=== PATIENT | male | born 1960 | race Hispanic/Latino ===

== ENCOUNTER 2020-10-27 16:46 | Inpatient (IN) | payer MEDICAID, OTHER, SELFPAY ==
[~2020-10-27] VITALS: Ht 185.4 cm; Wt 83.6 kg
[2020-10-27 17:13] LABS: BASOPHILS % (AUTO) 0.2 % (0.0-5.0); LYMPHOCYTES % (AUTO) 19.4 % (21.0-51.0); MEAN CORPUSCULAR HEMOGLOBIN 30.6 pg (27.0-33.0); MEAN CORPUSCULAR HGB CONC 33.9 g/dL (32.0-36.0); MEAN CORPUSCULAR VOLUME 90.4 fL (79-99); MONOCYTES % (AUTO) 8.3 % (3.0-13.0); NEUTROPHILS % (AUTO) 71.8 % (40.0-77.0); PLATELET COUNT (AUTO) 146 K/uL (130-400); RED BLOOD CELL COUNT(AUTO) 5.09 MIL/uL (4.50-6.20); RED CELL DISTRIBUTION WIDTH 11.9 % (11.0-15.5); WHITE BLOOD COUNT (AUTO) 6.2 K/uL (4.8-10.8)
[2020-10-27] MEDS ORDERED: ALBUTEROL INHALER 90MCG/INH IH ONE (17:17)
[2020-10-27] MEDS ORDERED: CEFTRIAXONE SODIUM 1 GM ONE (17:17)
[2020-10-27] MEDS ORDERED: ACETAMINOPHEN-CODEINE 300/30MG TAB ONE (17:18)
[2020-10-27] MEDS ORDERED: AZITHROMYCIN 250 MG TABLET PO ONE (17:18)
[2020-10-27] MEDS ORDERED: SODIUM CHLORIDE 0.9% 50 ML IV ONE (17:19)
[2020-10-27 17:21] LABS: ABG BASE EXCESS -5.7 mmol/L (-2.0-3.0); ABG HCO3 17.6 mmol/L (21.0-28.0); ABG OXYGEN SATURATION 81.4 % (95.0-99.0); ABG PCO2 29 mmHg (35-48)
[2020-10-27 17:28] LABS: INR 1.04 (0.85-1.15); PROTHROMBIN TIME 11.1 SEC (9.6-11.6)
[2020-10-27 17:29] LABS: PARTIAL THROMBOPLASTIN TIME 29.4 SEC (26.3-35.5)
[2020-10-27 17:36] LABS: CREATININE 1.1 mg/dL (0.5-1.5); POTASSIUM 4.2 mmol/L (3.5-5.1)
[2020-10-27 17:42] LABS: ALBUMIN 3.3 g/dL (3.5-5.0); BILIRUBIN,TOTAL 0.5 mg/dL (0.2-1.0); TOTAL PROTEIN, SERUM 7.8 g/dL (6.0-8.3)
[2020-10-27 18:02] LABS: B-TYPE NATRIURETIC PEPTIDE < 5 pg/mL (0-100)
[2020-10-27] MEDS ORDERED: ONDANSETRON HCL 4 MG/2 ML VIAL IVP PRN (19:00)
[2020-10-27] MEDS ORDERED: SODIUM CHLORIDE 0.9% 1000ML 1,000 ML IV SCH (19:00)
[2020-10-27] MEDS ORDERED: ACETAMINOPHEN 325 MG TAB PO PRN (19:00)
[2020-10-27] MEDS ORDERED: IBUPROFEN 200 MG TAB ONE (19:15)
[2020-10-27] MEDS ORDERED: IBUPROFEN 400 MG TABLET ONE (19:15)
[2020-10-27] MEDS: FAMOTIDINE 20MG TAB 20 MG TAB PO SCH (21:00)
[2020-10-27] MEDS ORDERED: FAMOTIDINE 20MG TAB 20 MG TAB ONE (21:40)
[2020-10-27] MEDS ORDERED: DEXAMETHASONE 4 MG TAB ONE (21:40)
[2020-10-27] MEDS ORDERED: ENOXAPARIN SODIUM 30 MG/0.3 ML SQ ONE (21:41)
[2020-10-27] MEDS: ALBUTEROL INHALER 90MCG/INH IH SCH (22:00)
[2020-10-28 06:54] LABS: APPEARANCE,URINE Clear (CLEAR); BILIRUBIN,URINE Negative (NEGATIVE); COLOR,URINE Yellow (YELLOW); GLUCOSE, URINE (UA) Negative (NEGATIVE); KETONES,URINE Trace mg/dL (NEGATIVE); LEUKOCYTE ESTERASE ,URINE Negative (NEGATIVE); NITRATE,URINE Negative (NEGATIVE); OCCULT BLOOD,URINE Negative (NEGATIVE); PH,URINE 6.5 (5.0-8.0); PROTEIN,URINE POS 1+ mg/dL (NEGATIVE); UROBILINOGEN,URINE 0.2 mg/dL (0.2-1.0)
[2020-10-28 07:40] LABS: BACTERIA,URINE Rare /HPF (None Seen); RBC,URINE 0-1 /HPF (0-1); SQUAMOUS EPITHELIAL CELL,UR 0-2 /HPF (0-2); WBC,URINE None Seen /HPF (0-1)
[2020-10-28] MEDS ORDERED: DEXAMETHASONE 4 MG TAB ONE (07:50)
[2020-10-28] MEDS ORDERED: FAMOTIDINE 20MG TAB 20 MG TAB ONE ×2 (07:50→20:21)
[2020-10-28] MEDS ORDERED: AZITHROMYCIN 250 MG TABLET PO ONE (07:51)
[2020-10-28] MEDS ORDERED: ENOXAPARIN SODIUM 30 MG/0.3 ML SQ ONE ×2 (07:51→20:22)
[2020-10-28] MEDS: ENOXAPARIN SODIUM 30 MG/0.3 ML SQ SCH ×2 (09:00→21:00)
[2020-10-28] MEDS ORDERED: DEXAMETHASONE 4 MG TAB PO SCH (09:00)
[2020-10-28] MEDS: AZITHROMYCIN 250 MG TABLET PO SCH (09:00)
[2020-10-28] MEDS ORDERED: CEFTRIAXONE SODIUM 1 GM ONE (16:07)
[2020-10-28] MEDS: CEFTRIAXONE SODIUM 1 GM IVP SCH (17:00)
[2020-10-28] MEDS: ALBUTEROL INHALER 90MCG/INH IH SCH ×2 (18:00→23:43)
[2020-10-28] MEDS: FAMOTIDINE 20MG TAB 20 MG TAB PO SCH (21:00)
[2020-10-28] MEDS: METHYLPREDNISOLONE SOD SUCC 125MG/2ML VIAL IVP SCH (21:00)
[2020-10-28] MEDS ORDERED: NAPR-1023 PO (21:16)
[2020-10-28] MEDS ORDERED: AZIT250T9 PO (21:16)
[2020-10-28 22:33] VITALS: BP 155/87
[2020-10-29 00:05] VITALS: BP 145/78
[2020-10-29] MEDS: ALBUTEROL INHALER 90MCG/INH IH SCH ×6 (02:44→21:55)
[2020-10-29 04:06] LABS: ABG BASE EXCESS -1.4 mmol/L (-2.0-3.0); ABG HCO3 22.2 mmol/L (21.0-28.0); ABG OXYGEN SATURATION 91.7 % (95.0-99.0); ABG PCO2 34 mmHg (35-48)
[2020-10-29 04:07] VITALS: BP 153/83
[2020-10-29 05:30] LABS: HEMATOCRIT 47.3 % (42-54); MEAN CORPUSCULAR HEMOGLOBIN 29.9 pg (27.0-33.0); MEAN CORPUSCULAR HGB CONC 33.4 g/dL (32.0-36.0); MEAN CORPUSCULAR VOLUME 89.6 fL (79-99); RED BLOOD CELL COUNT(AUTO) 5.28 MIL/uL (4.50-6.20)
[2020-10-29 05:56] LABS: CRP QUANTITATIVE 37.4 mg/L (0.00-9.0); POTASSIUM 3.9 mmol/L (3.5-5.1)
[2020-10-29 08:00] VITALS: BP 130/79
[2020-10-29] MEDS: AZITHROMYCIN 250 MG TABLET PO SCH (10:48)
[2020-10-29] MEDS: FAMOTIDINE 20MG TAB 20 MG TAB PO SCH ×2 (10:48→21:54)
[2020-10-29] MEDS: ENOXAPARIN SODIUM 30 MG/0.3 ML SQ SCH ×2 (10:48→21:55)
[2020-10-29] MEDS: METHYLPREDNISOLONE SOD SUCC 125MG/2ML VIAL IVP SCH ×2 (10:48→21:54)
[2020-10-29 12:00] VITALS: BP 131/84
[2020-10-29 16:00] VITALS: BP 133/86
[2020-10-29] MEDS ORDERED: GLUCAGON 1MG KIT 1 MG ML IM PRN (16:30)
[2020-10-29] MEDS ORDERED: DEXTROSE 50%-WATER 50 ML DISP.SYRIN IV PRN (16:30)
[2020-10-29] MEDS: INSULIN HUMULIN R 100 UNIT/ML 3ML SQ SCH ×2 (16:30→20:52)
[2020-10-29] MEDS: CEFTRIAXONE SODIUM 1 GM IVP SCH (16:31)
[2020-10-29 20:00] VITALS: BP 125/86
[2020-10-30] VITALS: BP_SYST 122; BP_SYST 124; BP_DIAS 68; BP_DIAS 87
[2020-10-30] MEDS: ALBUTEROL INHALER 90MCG/INH IH SCH ×6 (01:00→20:11)
[2020-10-30 03:49] VITALS: BP 123/64
[2020-10-30] MEDS: INSULIN HUMULIN R 100 UNIT/ML 3ML SQ SCH ×4 (06:51→20:18)
[2020-10-30 08:00] VITALS: BP 127/55
[2020-10-30 08:42] LABS: HEMATOCRIT 45.6 % (42-54); MEAN CORPUSCULAR HEMOGLOBIN 30.9 pg (27.0-33.0); MEAN CORPUSCULAR HGB CONC 33.8 g/dL (32.0-36.0); MEAN CORPUSCULAR VOLUME 91.6 fL (79-99); PLATELET COUNT (AUTO) 245 K/uL (130-400); RED BLOOD CELL COUNT(AUTO) 4.98 MIL/uL (4.50-6.20); RED CELL DISTRIBUTION WIDTH 12.3 % (11.0-15.5)
[2020-10-30 08:52] LABS: CREATININE 1.1 mg/dL (0.5-1.5); POTASSIUM 4.1 mmol/L (3.5-5.1)
[2020-10-30] MEDS: METHYLPREDNISOLONE SOD SUCC 125MG/2ML VIAL IVP SCH ×2 (09:00→20:11)
[2020-10-30] MEDS: ENOXAPARIN SODIUM 30 MG/0.3 ML SQ SCH ×2 (09:00→20:11)
[2020-10-30] MEDS: AZITHROMYCIN 250 MG TABLET PO SCH (09:00)
[2020-10-30] MEDS: FAMOTIDINE 20MG TAB 20 MG TAB PO SCH ×2 (09:00→20:10)
[2020-10-30 09:23] LABS: LYMPHOCYTES % (MANUAL) 7 % (22-44); MAN.DIFF COMMENT-IMPRESSION MANUAL DIFFERENTIAL; MONOCYTES % (MANUAL) 2 % (2-9); PLATELET MORPHOLOGY COMMENT ADEQUATE; SEGMENTED NEUTROPHILS % 91 % (40-70)
[2020-10-30 12:00] VITALS: BP 118/63
[2020-10-30 16:00] VITALS: BP 132/93
[2020-10-30] MEDS: CEFTRIAXONE SODIUM 1 GM IVP SCH (18:01)
[2020-10-30 20:45] VITALS: BP 121/61
[2020-10-31 00:38] VITALS: BP 137/69
[2020-10-31] MEDS: ALBUTEROL INHALER 90MCG/INH IH SCH ×6 (02:28→20:45)
[2020-10-31] MEDS: INSULIN HUMULIN R 100 UNIT/ML 3ML SQ SCH ×4 (06:11→20:45)
[2020-10-31 06:25] VITALS: BP 123/70
[2020-10-31] MEDS: METHYLPREDNISOLONE SOD SUCC 125MG/2ML VIAL IVP SCH ×4 (06:53→17:30)
[2020-10-31 08:28] VITALS: BP 130/59
[2020-10-31] MEDS: ENOXAPARIN SODIUM 30 MG/0.3 ML SQ SCH ×2 (09:43→20:41)
[2020-10-31] MEDS: FAMOTIDINE 20MG TAB 20 MG TAB PO SCH ×2 (09:43→20:39)
[2020-10-31 12:18] VITALS: BP 134/77
[2020-10-31] MEDS: CEFTRIAXONE SODIUM 1 GM IVP SCH (16:04)
[2020-10-31 16:30] VITALS: BP 126/73
[2020-10-31 19:00] VITALS: BP 125/73
[2020-11-01] VITALS: BP 140/64
[2020-11-01] MEDS: METHYLPREDNISOLONE SOD SUCC 125MG/2ML VIAL IVP SCH ×4 (01:34→17:12)
[2020-11-01] MEDS: ALBUTEROL INHALER 90MCG/INH IH SCH ×6 (01:35→21:31)
[2020-11-01 04:00] VITALS: BP 135/78
[2020-11-01] MEDS: INSULIN HUMULIN R 100 UNIT/ML 3ML SQ SCH ×4 (07:13→21:00)
[2020-11-01 08:00] VITALS: BP 118/64
[2020-11-01] MEDS: FAMOTIDINE 20MG TAB 20 MG TAB PO SCH ×2 (08:03→21:30)
[2020-11-01] MEDS: ENOXAPARIN SODIUM 30 MG/0.3 ML SQ SCH ×2 (08:04→21:30)
[2020-11-01 11:49] VITALS: BP 129/64
[2020-11-01 15:54] VITALS: BP 129/65
[2020-11-01] MEDS: CEFTRIAXONE SODIUM 1 GM IVP SCH (17:12)
[2020-11-01 20:00] VITALS: BP 137/76
[2020-11-02] VITALS (7 sets, daily range): BP systolic 117–142; BP diastolic 58–71
[2020-11-02] MEDS: METHYLPREDNISOLONE SOD SUCC 125MG/2ML VIAL IVP SCH ×5 (02:26→23:38)
[2020-11-02] MEDS: ALBUTEROL INHALER 90MCG/INH IH SCH ×6 (02:27→23:38)
[2020-11-02] MEDS: INSULIN HUMULIN R 100 UNIT/ML 3ML SQ SCH ×4 (05:39→21:51)
[2020-11-02] MEDS: FAMOTIDINE 20MG TAB 20 MG TAB PO SCH ×2 (08:03→21:14)
[2020-11-02] MEDS: ENOXAPARIN SODIUM 30 MG/0.3 ML SQ SCH ×2 (08:03→21:15)
[2020-11-02] MEDS: CEFTRIAXONE SODIUM 1 GM IVP SCH (16:44)
[2020-11-03] MEDS: ALBUTEROL INHALER 90MCG/INH IH SCH ×6 (02:00→21:45)
[2020-11-03 05:35] LABS: HEMATOCRIT 46.1 % (42-54); MEAN CORPUSCULAR HEMOGLOBIN 30.6 pg (27.0-33.0); MEAN CORPUSCULAR HGB CONC 33.6 g/dL (32.0-36.0); MEAN CORPUSCULAR VOLUME 91.1 fL (79-99); PLATELET COUNT (AUTO) 287 K/uL (130-400); RED BLOOD CELL COUNT(AUTO) 5.06 MIL/uL (4.50-6.20); RED CELL DISTRIBUTION WIDTH 11.8 % (11.0-15.5); WHITE BLOOD COUNT (AUTO) 12.4 K/uL (4.8-10.8)
[2020-11-03 05:40] VITALS: BP 139/75
[2020-11-03] MEDS: METHYLPREDNISOLONE SOD SUCC 125MG/2ML VIAL IVP SCH ×4 (05:49→21:35)
[2020-11-03 05:51] LABS: BILIRUBIN,TOTAL 0.4 mg/dL (0.2-1.0); POTASSIUM 4.3 mmol/L (3.5-5.1); TOTAL PROTEIN, SERUM 6.8 g/dL (6.0-8.3)
[2020-11-03] MEDS: INSULIN HUMULIN R 100 UNIT/ML 3ML SQ SCH ×4 (05:52→21:48)
[2020-11-03 06:16] LABS: BAND NEUTROPHILS % (MANUAL) 1 % (0-2); LYMPHOCYTES % (MANUAL) 6 % (22-44); MAN.DIFF COMMENT-IMPRESSION MANUAL DIFFERENTIAL; MONOCYTES % (MANUAL) 4 % (2-9); REACTIVE LYMPHOCYTES 2 % (0-0); SEGMENTED NEUTROPHILS % 87 % (40-70)
[2020-11-03 06:17] LABS: PLATELET MORPHOLOGY COMMENT ADEQUATE
[2020-11-03] MEDS: FAMOTIDINE 20MG TAB 20 MG TAB PO SCH ×2 (08:41→21:35)
[2020-11-03] MEDS: ENOXAPARIN SODIUM 30 MG/0.3 ML SQ SCH ×2 (08:41→21:36)
[2020-11-03 12:00] VITALS: BP 163/72
[2020-11-03] MEDS: CEFTRIAXONE SODIUM 1 GM IVP SCH (16:21)
[2020-11-03 17:16] VITALS: BP 147/68
[2020-11-03 20:02] VITALS: BP 152/71
[2020-11-04] MEDS: ALBUTEROL INHALER 90MCG/INH IH SCH ×6 (02:00→21:35)
[2020-11-04 05:44] VITALS: BP 134/60
[2020-11-04] MEDS: METHYLPREDNISOLONE SOD SUCC 125MG/2ML VIAL IVP SCH ×4 (05:53→21:31)
[2020-11-04] MEDS: INSULIN HUMULIN R 100 UNIT/ML 3ML SQ SCH ×4 (06:23→22:03)
[2020-11-04 08:30] VITALS: BP 138/69
[2020-11-04] MEDS: ENOXAPARIN SODIUM 30 MG/0.3 ML SQ SCH ×2 (10:27→21:33)
[2020-11-04] MEDS: FAMOTIDINE 20MG TAB 20 MG TAB PO SCH ×2 (10:27→21:28)
[2020-11-04 12:44] VITALS: BP 142/59
[2020-11-04 16:30] VITALS: BP 136/68
[2020-11-04] MEDS: CEFTRIAXONE SODIUM 1 GM IVP SCH (17:16)
[2020-11-04 19:44] VITALS: BP 146/67
[2020-11-05 00:10] VITALS: BP 141/71
[2020-11-05] MEDS: ALBUTEROL INHALER 90MCG/INH IH SCH ×6 (02:00→22:00)
[2020-11-05 05:48] VITALS: BP 156/71
[2020-11-05] MEDS: INSULIN HUMULIN R 100 UNIT/ML 3ML SQ SCH ×4 (05:53→21:46)
[2020-11-05] MEDS: METHYLPREDNISOLONE SOD SUCC 125MG/2ML VIAL IVP SCH ×3 (05:54→18:44)
[2020-11-05 08:53] VITALS: BP 138/83
[2020-11-05] MEDS: FAMOTIDINE 20MG TAB 20 MG TAB PO SCH ×2 (10:11→21:30)
[2020-11-05] MEDS: ENOXAPARIN SODIUM 30 MG/0.3 ML SQ SCH ×2 (10:12→21:30)
[2020-11-05 12:06] VITALS: BP 111/67
[2020-11-05 17:45] VITALS: BP 153/85
[2020-11-05 20:27] VITALS: BP 150/80
[2020-11-06] VITALS: BP 157/77
[2020-11-06] MEDS: ALBUTEROL INHALER 90MCG/INH IH SCH ×3 (02:00→21:10)
[2020-11-06] MEDS: METHYLPREDNISOLONE SOD SUCC 125MG/2ML VIAL IVP SCH ×5 (04:47→23:06)
[2020-11-06 05:01] VITALS: BP 147/80
[2020-11-06 06:26] LABS: BASOPHILS % (AUTO) 0.2 % (0.0-5.0); HEMATOCRIT 47.6 % (42-54); LYMPHOCYTES % (AUTO) 4.9 % (21.0-51.0); MEAN CORPUSCULAR HEMOGLOBIN 30.3 pg (27.0-33.0); MEAN CORPUSCULAR HGB CONC 33.8 g/dL (32.0-36.0); MEAN CORPUSCULAR VOLUME 89.6 fL (79-99); NEUTROPHILS % (AUTO) 87.5 % (40.0-77.0); PLATELET COUNT (AUTO) 233 K/uL (130-400); RED BLOOD CELL COUNT(AUTO) 5.31 MIL/uL (4.50-6.20); RED CELL DISTRIBUTION WIDTH 11.8 % (11.0-15.5); WHITE BLOOD COUNT (AUTO) 20.1 K/uL (4.8-10.8)
[2020-11-06 06:51] LABS: ALBUMIN 2.9 g/dL (3.5-5.0); BILIRUBIN,TOTAL 0.6 mg/dL (0.2-1.0); CREATININE 0.9 mg/dL (0.5-1.5); MAGNESIUM 2.5 mg/dL (1.80-2.40); POTASSIUM 4.1 mmol/L (3.5-5.1); TOTAL PROTEIN, SERUM 6.7 g/dL (6.0-8.3)
[2020-11-06] MEDS: INSULIN HUMULIN R 100 UNIT/ML 3ML SQ SCH ×4 (07:30→20:51)
[2020-11-06 07:49] VITALS: BP 137/84
[2020-11-06] MEDS: FAMOTIDINE 20MG TAB 20 MG TAB PO SCH ×2 (10:10→20:08)
[2020-11-06] MEDS: ENOXAPARIN SODIUM 30 MG/0.3 ML SQ SCH ×2 (10:10→20:08)
[2020-11-06 11:52] VITALS: BP 133/75
[2020-11-06] MEDS ORDERED: SODIUM CHLORIDE 45 ML SPRY NS PRN (12:45)
[2020-11-06 15:46] VITALS: BP 131/77
[2020-11-06 20:00] VITALS: BP 151/87
[2020-11-07] VITALS (7 sets, daily range): BP systolic 130–163; BP diastolic 68–103
[2020-11-07] MEDS: ALBUTEROL INHALER 90MCG/INH IH SCH ×6 (02:32→22:00)
[2020-11-07] MEDS: METHYLPREDNISOLONE SOD SUCC 125MG/2ML VIAL IVP SCH ×3 (05:01→20:31)
[2020-11-07 05:34] LABS: BASOPHILS % (AUTO) 0.2 % (0.0-5.0); HEMATOCRIT 46.9 % (42-54); LYMPHOCYTES % (AUTO) 4.3 % (21.0-51.0); MEAN CORPUSCULAR HEMOGLOBIN 30.8 pg (27.0-33.0); MEAN CORPUSCULAR HGB CONC 34.3 g/dL (32.0-36.0); MEAN CORPUSCULAR VOLUME 89.7 fL (79-99); MONOCYTES % (AUTO) 4.1 % (3.0-13.0); NEUTROPHILS % (AUTO) 88.4 % (40.0-77.0); PLATELET COUNT (AUTO) 204 K/uL (130-400); RED BLOOD CELL COUNT(AUTO) 5.23 MIL/uL (4.50-6.20); RED CELL DISTRIBUTION WIDTH 11.9 % (11.0-15.5); WHITE BLOOD COUNT (AUTO) 21.3 K/uL (4.8-10.8)
[2020-11-07 05:51] LABS: ALBUMIN 2.7 g/dL (3.5-5.0); BILIRUBIN,TOTAL 0.5 mg/dL (0.2-1.0); CREATININE 0.8 mg/dL (0.5-1.5); POTASSIUM 4.1 mmol/L (3.5-5.1); TOTAL PROTEIN, SERUM 6.6 g/dL (6.0-8.3)
[2020-11-07] MEDS: INSULIN HUMULIN R 100 UNIT/ML 3ML SQ SCH ×4 (07:30→20:24)
[2020-11-07] MEDS: FAMOTIDINE 20MG TAB 20 MG TAB PO SCH ×2 (12:04→20:32)
[2020-11-07] MEDS: ENOXAPARIN SODIUM 30 MG/0.3 ML SQ SCH ×2 (12:04→20:32)
[2020-11-07] MEDS ORDERED: LORAZEPAM 2 MG/ML 1 ML VIAL IVP ONE (22:00)
[2020-11-08] VITALS (23 sets, daily range): BP systolic 77–220; BP diastolic 49–109
[2020-11-08] MEDS: METHYLPREDNISOLONE SOD SUCC 125MG/2ML VIAL IVP SCH ×4 (00:18→18:59)
[2020-11-08] MEDS: ALBUTEROL INHALER 90MCG/INH IH SCH ×5 (02:00→18:00)
[2020-11-08 04:25] LABS: ABG BASE EXCESS 1.9 mmol/L (-2.0-3.0); ABG HCO3 26.2 mmol/L (21.0-28.0); ABG OXYGEN SATURATION 84.8 % (95.0-99.0); ABG PCO2 40 mmHg (35-48)
[2020-11-08 05:51] LABS: BASOPHILS % (AUTO) 0.2 % (0.0-5.0); HEMATOCRIT 49.5 % (42-54); LYMPHOCYTES % (AUTO) 2.5 % (21.0-51.0); MEAN CORPUSCULAR HEMOGLOBIN 30.5 pg (27.0-33.0); MEAN CORPUSCULAR HGB CONC 33.1 g/dL (32.0-36.0); MONOCYTES % (AUTO) 2.9 % (3.0-13.0); NEUTROPHILS % (AUTO) 92.6 % (40.0-77.0); PLATELET COUNT (AUTO) 199 K/uL (130-400); RED BLOOD CELL COUNT(AUTO) 5.38 MIL/uL (4.50-6.20); RED CELL DISTRIBUTION WIDTH 12.2 % (11.0-15.5); WHITE BLOOD COUNT (AUTO) 21.5 K/uL (4.8-10.8)
[2020-11-08 06:02] LABS: ABG BASE EXCESS -1.7 mmol/L (-2.0-3.0); ABG HCO3 21.7 mmol/L (21.0-28.0); ABG PCO2 34 mmHg (35-48)
[2020-11-08 06:11] LABS: ALBUMIN 2.7 g/dL (3.5-5.0); BILIRUBIN,DIRECT 0.1 mg/dL (0.0-0.3); BILIRUBIN,TOTAL 0.7 mg/dL (0.2-1.0); CREATININE 0.9 mg/dL (0.5-1.5); MAGNESIUM 2.6 mg/dL (1.80-2.40); PHOSPHORUS 3.4 mg/dL (2.5-4.9); POTASSIUM 4.3 mmol/L (3.5-5.1); TOTAL PROTEIN, SERUM 6.5 g/dL (6.0-8.3)
[2020-11-08] MEDS: INSULIN HUMULIN R 100 UNIT/ML 3ML SQ SCH ×4 (06:35→20:42)
[2020-11-08] MEDS: ENOXAPARIN SODIUM 30 MG/0.3 ML SQ SCH ×2 (08:50→21:32)
[2020-11-08] MEDS: FAMOTIDINE 20MG TAB 20 MG TAB PO SCH (08:50)
[2020-11-08 11:10] LABS: ABG BASE EXCESS -0.9 mmol/L (-2.0-3.0); ABG HCO3 23.3 mmol/L (21.0-28.0); ABG OXYGEN SATURATION 79.2 % (95.0-99.0); ABG PCO2 37 mmHg (35-48)
[2020-11-08] MEDS ORDERED: FENTANYL CITRATE PF 0.05 MG/ML 1,000 MCG in SODIUM CHLORIDE 0.9% 100 ML IVPB SCH (11:15)
[2020-11-08] MEDS: MIDAZOLAM 100MG-0.9% NS 100ML 100ML BAG IV SCH ×3 (11:15→22:48)
[2020-11-08] MEDS ORDERED: PROPOFOL 1000 MG/100 ML 100 ML IV ONE (11:43)
[2020-11-08] MEDS ORDERED: FENTANYL 2500MCG+NS 250ML 250 ML IV ONE (11:43)
[2020-11-08] MEDS ORDERED: SODIUM CHLORIDE 0.9% 1000ML 1,000 ML IV ONE (11:44)
[2020-11-08] MEDS ORDERED: MIDAZOLAM HCL 1 MG/ML 2ML VIAL ONE (11:58)
[2020-11-08] MEDS ORDERED: PHARMACY COMMUNICATION MISC SCH ×2 (14:00→19:00)
[2020-11-08] MEDS ORDERED: NOREPINEPHRINE 4MG/NS 250ML 250 ML IV STA (14:10)
[2020-11-08] MEDS ORDERED: VECURONIUM 50MG/NS 50ML IV SCH ×2 (14:30)
[2020-11-08] MEDS ORDERED: NOREPINEPHRINE 4MG/NS 250ML 250 ML IV ONE (14:59)
[2020-11-08] MEDS: PROPOFOL 1000 MG/100 ML 100 ML IV SCH (19:42)
[2020-11-08] MEDS: FAMOTIDINE/PF 20 MG/2 ML VIAL IV SCH (21:32)
[2020-11-09] VITALS (19 sets, daily range): BP systolic 98–130; BP diastolic 70–82
[2020-11-09] MEDS: METHYLPREDNISOLONE SOD SUCC 125MG/2ML VIAL IVP SCH ×4 (00:19→19:13)
[2020-11-09] MEDS: ROCURONIUM 100 MG/NS 100ML (DRIP) IV SCH ×2 (00:20)
[2020-11-09] MEDS ORDERED: FENTANYL 2500MCG+NS 250ML 250 ML IV ONE ×2 (00:45→12:31)
[2020-11-09] MEDS: PROPOFOL 1000 MG/100 ML 100 ML IV SCH ×4 (00:48→20:31)
[2020-11-09 04:11] LABS: BASOPHILS % (AUTO) 0.2 % (0.0-5.0); HEMATOCRIT 49.2 % (42-54); LYMPHOCYTES % (AUTO) 2.3 % (21.0-51.0); MEAN CORPUSCULAR HEMOGLOBIN 30.2 pg (27.0-33.0); MEAN CORPUSCULAR HGB CONC 32.1 g/dL (32.0-36.0); MEAN CORPUSCULAR VOLUME 93.9 fL (79-99); MONOCYTES % (AUTO) 3.6 % (3.0-13.0); NEUTROPHILS % (AUTO) 92.5 % (40.0-77.0); PLATELET COUNT (AUTO) 216 K/uL (130-400); RED BLOOD CELL COUNT(AUTO) 5.24 MIL/uL (4.50-6.20); RED CELL DISTRIBUTION WIDTH 12.2 % (11.0-15.5); WHITE BLOOD COUNT (AUTO) 28.1 K/uL (4.8-10.8)
[2020-11-09 04:25] LABS: ALBUMIN 2.5 g/dL (3.5-5.0); BILIRUBIN,TOTAL 0.4 mg/dL (0.2-1.0); POTASSIUM 4.9 mmol/L (3.5-5.1); TOTAL PROTEIN, SERUM 6.4 g/dL (6.0-8.3)
[2020-11-09 05:51] LABS: INR 1.03 (0.85-1.15); PROTHROMBIN TIME 11.2 SEC (9.6-11.6)
[2020-11-09] MEDS: INSULIN HUMULIN R 100 UNIT/ML 3ML SQ SCH ×4 (06:02→20:32)
[2020-11-09] MEDS: ENOXAPARIN SODIUM 30 MG/0.3 ML SQ SCH ×2 (09:54→20:19)
[2020-11-09] MEDS: FAMOTIDINE/PF 20 MG/2 ML VIAL IV SCH ×2 (09:54→20:19)
[2020-11-09] MEDS: MIDAZOLAM 100MG-0.9% NS 100ML 100ML BAG IV SCH ×2 (12:00→19:17)
[2020-11-09] MEDS ORDERED: NOREPINEPHRINE 4MG/NS 250ML 250 ML IV ONE (12:32)
[2020-11-09 14:18] LABS: ABG HCO3 26.8 mmol/L (21.0-28.0); ABG OXYGEN SATURATION 88.7 % (95.0-99.0); ABG PCO2 57 mmHg (35-48)
[2020-11-09] MEDS: DOCUSATE SODIUM 100 MG CAP PO SCH (20:19)
[2020-11-10] VITALS (22 sets, daily range): BP systolic 125–188; BP diastolic 76–112
[2020-11-10] MEDS ORDERED: FENTANYL 2500MCG+NS 250ML 250 ML IV ONE ×2 (02:58→15:37)
[2020-11-10] MEDS: ROCURONIUM 100 MG/NS 100ML (DRIP) IV SCH ×6 (03:05→20:28)
[2020-11-10] MEDS: PROPOFOL 1000 MG/100 ML 100 ML IV SCH (04:10)
[2020-11-10] MEDS: METHYLPREDNISOLONE SOD SUCC 125MG/2ML VIAL IVP SCH ×4 (05:44→17:03)
[2020-11-10] MEDS: INSULIN HUMULIN R 100 UNIT/ML 3ML SQ SCH ×4 (05:58→20:23)
[2020-11-10 06:10] LABS: BASOPHILS % (AUTO) 0.1 % (0.0-5.0); HEMATOCRIT 48.6 % (42-54); MEAN CORPUSCULAR HEMOGLOBIN 30.5 pg (27.0-33.0); MEAN CORPUSCULAR HGB CONC 31.5 g/dL (32.0-36.0); MONOCYTES % (AUTO) 4.2 % (3.0-13.0); NEUTROPHILS % (AUTO) 90.8 % (40.0-77.0); PLATELET COUNT (AUTO) 165 K/uL (130-400); RED BLOOD CELL COUNT(AUTO) 5.01 MIL/uL (4.50-6.20); RED CELL DISTRIBUTION WIDTH 12.3 % (11.0-15.5); WHITE BLOOD COUNT (AUTO) 16.9 K/uL (4.8-10.8)
[2020-11-10 06:33] LABS: ALBUMIN 2.4 g/dL (3.5-5.0); BILIRUBIN,TOTAL 0.3 mg/dL (0.2-1.0); CREATININE 0.8 mg/dL (0.5-1.5); POTASSIUM 5.1 mmol/L (3.5-5.1); TOTAL PROTEIN, SERUM 6.1 g/dL (6.0-8.3)
[2020-11-10] MEDS: DOCUSATE SODIUM 100 MG CAP PO SCH ×2 (09:47→20:23)
[2020-11-10] MEDS: ENOXAPARIN SODIUM 30 MG/0.3 ML SQ SCH ×2 (09:47→20:22)
[2020-11-10] MEDS: POLYETHYLENE GLYCOL 3350 17 GM POWD.PACK PO SCH (09:47)
[2020-11-10] MEDS: FAMOTIDINE/PF 20 MG/2 ML VIAL IV SCH ×2 (09:47→20:22)
[2020-11-10] MEDS: MIDAZOLAM 100MG-0.9% NS 100ML 100ML BAG IV SCH ×2 (12:00→15:50)
[2020-11-10 12:51] LABS: ABG BASE EXCESS 2.7 mmol/L (-2.0-3.0); ABG HCO3 29.6 mmol/L (21.0-28.0); ABG PCO2 54 mmHg (35-48)
[2020-11-10] MEDS ORDERED: NITROGLYCERIN 1GM/1 INCH PACKET TD SCH (21:00)
[2020-11-11] VITALS (23 sets, daily range): BP systolic 103–151; BP diastolic 68–94
[2020-11-11] MEDS: ROCURONIUM 100 MG/NS 100ML (DRIP) IV SCH ×18 (01:41→21:37)
[2020-11-11] MEDS: METHYLPREDNISOLONE SOD SUCC 125MG/2ML VIAL IVP SCH ×4 (01:42→17:03)
[2020-11-11] MEDS: PROPOFOL 1000 MG/100 ML 100 ML IV SCH (05:11)
[2020-11-11 05:22] LABS: BASOPHILS % (AUTO) 0.1 % (0.0-5.0); EOSINOPHILS % (AUTO) 0.1 % (0.0-8.0); HEMATOCRIT 49.9 % (42-54); LYMPHOCYTES % (AUTO) 5.8 % (21.0-51.0); MEAN CORPUSCULAR HGB CONC 30.5 g/dL (32.0-36.0); MEAN CORPUSCULAR VOLUME 98.6 fL (79-99); MONOCYTES % (AUTO) 3.3 % (3.0-13.0); NEUTROPHILS % (AUTO) 89.8 % (40.0-77.0); PLATELET COUNT (AUTO) 142 K/uL (130-400); RED BLOOD CELL COUNT(AUTO) 5.06 MIL/uL (4.50-6.20); RED CELL DISTRIBUTION WIDTH 12.4 % (11.0-15.5); WHITE BLOOD COUNT (AUTO) 16.2 K/uL (4.8-10.8)
[2020-11-11 05:36] LABS: ALBUMIN 2.3 g/dL (3.5-5.0); BILIRUBIN,TOTAL 0.6 mg/dL (0.2-1.0); CREATININE 0.8 mg/dL (0.5-1.5); POTASSIUM 4.6 mmol/L (3.5-5.1); TOTAL PROTEIN, SERUM 5.9 g/dL (6.0-8.3)
[2020-11-11] MEDS: INSULIN HUMULIN R 100 UNIT/ML 3ML SQ SCH ×4 (05:52→21:52)
[2020-11-11] MEDS: FAMOTIDINE/PF 20 MG/2 ML VIAL IV SCH ×2 (08:55→21:35)
[2020-11-11] MEDS: ENOXAPARIN SODIUM 30 MG/0.3 ML SQ SCH ×2 (08:55→21:36)
[2020-11-11] MEDS: POLYETHYLENE GLYCOL 3350 17 GM POWD.PACK PO SCH (08:55)
[2020-11-11] MEDS: DOCUSATE SODIUM 100 MG CAP PO SCH ×2 (08:56→21:35)
[2020-11-11] MEDS ORDERED: FENTANYL 2500MCG+NS 250ML 250 ML IV ONE (11:41)
[2020-11-11] MEDS ORDERED: FENTANYL CITRATE PF 0.05 MG/ML 2,500 MCG in SODIUM CHLORIDE 0.9% 250 ML IVPB SCH (11:45)
[2020-11-11] MEDS: MIDAZOLAM 100MG-0.9% NS 100ML 100ML BAG IV SCH (11:58)
[2020-11-11] MEDS ORDERED: COMPOUND IV REFRIGERATED 1 EACH IVSOLN MISC PRN (18:45)
[2020-11-11] MEDS: FENTANYL 2500MCG+NS 250ML 250 ML IV SCH (21:51)
[2020-11-12] VITALS (23 sets, daily range): BP systolic 13–154; BP diastolic 71–91
[2020-11-12] MEDS: ROCURONIUM BROMIDE 250 MG in SODIUM CHLORIDE 0.9% 250 ML IV SCH ×4 (00:45→22:53)
[2020-11-12] MEDS: MIDAZOLAM 100MG-0.9% NS 100ML 100ML BAG IV SCH ×3 (00:50→16:41)
[2020-11-12] MEDS: METHYLPREDNISOLONE SOD SUCC 125MG/2ML VIAL IVP SCH ×4 (01:19→17:57)
[2020-11-12] MEDS: FENTANYL 2500MCG+NS 250ML 250 ML IV SCH ×3 (05:30→21:00)
[2020-11-12] MEDS: INSULIN HUMULIN R 100 UNIT/ML 3ML SQ SCH ×4 (06:23→20:28)
[2020-11-12] MEDS: ROCURONIUM 100 MG/NS 100ML (DRIP) IV SCH ×2 (06:30)
[2020-11-12] MEDS: POLYETHYLENE GLYCOL 3350 17 GM POWD.PACK PO SCH (08:09)
[2020-11-12] MEDS: FAMOTIDINE/PF 20 MG/2 ML VIAL IV SCH ×2 (08:09→20:26)
[2020-11-12] MEDS: ENOXAPARIN SODIUM 30 MG/0.3 ML SQ SCH ×2 (08:10→20:25)
[2020-11-12] MEDS: DOCUSATE SODIUM 100 MG CAP PO SCH ×2 (08:11→20:25)
[2020-11-12 08:51] LABS: ABG BASE EXCESS 5.5 mmol/L (-2.0-3.0); ABG HCO3 33.1 mmol/L (21.0-28.0); ABG OXYGEN SATURATION 71.2 % (95.0-99.0); ABG PCO2 61 mmHg (35-48)
[2020-11-12 09:19] LABS: HEMATOCRIT 46.1 % (42-54); MEAN CORPUSCULAR HEMOGLOBIN 30.3 pg (27.0-33.0); MEAN CORPUSCULAR HGB CONC 30.6 g/dL (32.0-36.0); MEAN CORPUSCULAR VOLUME 98.9 fL (79-99); PLATELET COUNT (AUTO) 89 K/uL (130-400); RED BLOOD CELL COUNT(AUTO) 4.66 MIL/uL (4.50-6.20); RED CELL DISTRIBUTION WIDTH 12.6 % (11.0-15.5); WHITE BLOOD COUNT (AUTO) 14.9 K/uL (4.8-10.8)
[2020-11-12 09:36] LABS: BILIRUBIN,TOTAL 0.4 mg/dL (0.2-1.0); CREATININE 0.8 mg/dL (0.5-1.5); POTASSIUM 4.5 mmol/L (3.5-5.1); TOTAL PROTEIN, SERUM 5.2 g/dL (6.0-8.3)
[2020-11-13] VITALS (23 sets, daily range): BP systolic 123–164; BP diastolic 69–92
[2020-11-13] MEDS: METHYLPREDNISOLONE SOD SUCC 125MG/2ML VIAL IVP SCH ×4 (00:20→20:47)
[2020-11-13] MEDS: MIDAZOLAM 100MG-0.9% NS 100ML 100ML BAG IV SCH ×3 (03:17→17:54)
[2020-11-13] MEDS: ROCURONIUM BROMIDE 250 MG in SODIUM CHLORIDE 0.9% 250 ML IV SCH ×3 (04:13→23:18)
[2020-11-13] MEDS: FENTANYL 2500MCG+NS 250ML 250 ML IV SCH ×3 (04:17→17:55)
[2020-11-13 04:42] LABS: BASOPHILS % (AUTO) 0.1 % (0.0-5.0); HEMATOCRIT 42.1 % (42-54); LYMPHOCYTES % (AUTO) 3.9 % (21.0-51.0); MEAN CORPUSCULAR HEMOGLOBIN 30.8 pg (27.0-33.0); MEAN CORPUSCULAR HGB CONC 31.1 g/dL (32.0-36.0); MEAN CORPUSCULAR VOLUME 99.1 fL (79-99); PLATELET COUNT (AUTO) 86 K/uL (130-400); RED BLOOD CELL COUNT(AUTO) 4.25 MIL/uL (4.50-6.20); RED CELL DISTRIBUTION WIDTH 12.2 % (11.0-15.5); WHITE BLOOD COUNT (AUTO) 17.8 K/uL (4.8-10.8)
[2020-11-13 05:06] LABS: ALBUMIN 1.8 g/dL (3.5-5.0); BILIRUBIN,TOTAL 0.4 mg/dL (0.2-1.0); CREATININE 0.7 mg/dL (0.5-1.5); POTASSIUM 4.4 mmol/L (3.5-5.1); TOTAL PROTEIN, SERUM 4.9 g/dL (6.0-8.3)
[2020-11-13] MEDS: INSULIN HUMULIN R 100 UNIT/ML 3ML SQ SCH ×4 (06:55→20:40)
[2020-11-13] MEDS: POLYETHYLENE GLYCOL 3350 17 GM POWD.PACK PO SCH (08:32)
[2020-11-13] MEDS: ENOXAPARIN SODIUM 30 MG/0.3 ML SQ SCH ×2 (08:33→20:37)
[2020-11-13] MEDS: FAMOTIDINE/PF 20 MG/2 ML VIAL IV SCH ×2 (08:33→20:44)
[2020-11-13] MEDS: DOCUSATE SODIUM 100 MG CAP PO SCH (09:00)
[2020-11-13] MEDS: ROCURONIUM 100 MG/NS 100ML (DRIP) IV SCH ×6 (10:42→15:51)
[2020-11-13] MEDS: DOCUSATE NA 100MG/10ML UDCUP NG SCH (20:37)
[2020-11-13] MEDS ORDERED: METHYLPREDNISOLONE SOD SUCC 125MG/2ML VIAL ONE (20:46)
[2020-11-14] VITALS (23 sets, daily range): BP systolic 121–158; BP diastolic 67–88
[2020-11-14] MEDS: MIDAZOLAM 100MG-0.9% NS 100ML 100ML BAG IV SCH ×3 (03:03→16:34)
[2020-11-14] MEDS: FENTANYL 2500MCG+NS 250ML 250 ML IV SCH ×3 (03:04→16:35)
[2020-11-14] MEDS: METHYLPREDNISOLONE SOD SUCC 125MG/2ML VIAL IVP SCH ×3 (05:17→20:56)
[2020-11-14] MEDS: ROCURONIUM BROMIDE 250 MG in SODIUM CHLORIDE 0.9% 250 ML IV SCH ×4 (05:33→20:07)
[2020-11-14] MEDS: INSULIN HUMULIN R 100 UNIT/ML 3ML SQ SCH ×4 (06:02→20:05)
[2020-11-14 06:03] LABS: MEAN CORPUSCULAR HEMOGLOBIN 30.6 pg (27.0-33.0); MEAN CORPUSCULAR VOLUME 98.7 fL (79-99); RED BLOOD CELL COUNT(AUTO) 3.95 MIL/uL (4.50-6.20); RED CELL DISTRIBUTION WIDTH 12.2 % (11.0-15.5); WHITE BLOOD COUNT (AUTO) 17.2 K/uL (4.8-10.8)
[2020-11-14 06:12] LABS: CREATININE 0.6 mg/dL (0.5-1.5); POTASSIUM 4.4 mmol/L (3.5-5.1)
[2020-11-14 07:17] LABS: ABG BASE EXCESS 2.9 mmol/L (-2.0-3.0); ABG HCO3 30.9 mmol/L (21.0-28.0); ABG OXYGEN SATURATION 88.6 % (95.0-99.0); ABG PCO2 62 mmHg (35-48)
[2020-11-14] MEDS: FAMOTIDINE/PF 20 MG/2 ML VIAL IV SCH ×2 (08:15→20:56)
[2020-11-14] MEDS: ENOXAPARIN SODIUM 30 MG/0.3 ML SQ SCH (08:15)
[2020-11-14] MEDS: DOCUSATE NA 100MG/10ML UDCUP NG SCH ×2 (08:15→20:56)
[2020-11-14] MEDS: POLYETHYLENE GLYCOL 3350 17 GM POWD.PACK PO SCH (08:16)
[2020-11-14] MEDS: DIAZEPAM 5 MG TABLET PO SCH (18:02)
[2020-11-15] VITALS (24 sets, daily range): BP systolic 106–158; BP diastolic 63–93
[2020-11-15] MEDS: DIAZEPAM 5 MG TABLET PO SCH ×3 (00:46→16:29)
[2020-11-15] MEDS: ROCURONIUM BROMIDE 250 MG in SODIUM CHLORIDE 0.9% 250 ML IV SCH ×4 (00:49→20:06)
[2020-11-15] MEDS: MIDAZOLAM 100MG-0.9% NS 100ML 100ML BAG IV SCH ×3 (02:25→17:24)
[2020-11-15] MEDS: FENTANYL 2500MCG+NS 250ML 250 ML IV SCH ×3 (02:26→17:25)
[2020-11-15] MEDS: METHYLPREDNISOLONE SOD SUCC 125MG/2ML VIAL IVP SCH ×3 (05:15→21:13)
[2020-11-15 05:28] LABS: HEMATOCRIT 38.6 % (42-54); MEAN CORPUSCULAR HEMOGLOBIN 30.4 pg (27.0-33.0); MEAN CORPUSCULAR HGB CONC 30.8 g/dL (32.0-36.0); MEAN CORPUSCULAR VOLUME 98.5 fL (79-99); RED BLOOD CELL COUNT(AUTO) 3.92 MIL/uL (4.50-6.20); RED CELL DISTRIBUTION WIDTH 12.1 % (11.0-15.5); WHITE BLOOD COUNT (AUTO) 15.2 K/uL (4.8-10.8)
[2020-11-15 06:35] LABS: CREATININE 0.6 mg/dL (0.5-1.5); POTASSIUM 4.3 mmol/L (3.5-5.1)
[2020-11-15] MEDS: INSULIN HUMULIN R 100 UNIT/ML 3ML SQ SCH ×4 (07:30→20:04)
[2020-11-15] MEDS: DOCUSATE NA 100MG/10ML UDCUP NG SCH ×2 (08:29→20:02)
[2020-11-15] MEDS: POLYETHYLENE GLYCOL 3350 17 GM POWD.PACK PO SCH (08:29)
[2020-11-15] MEDS: FAMOTIDINE/PF 20 MG/2 ML VIAL IV SCH ×2 (08:29→20:02)
[2020-11-16] VITALS (22 sets, daily range): BP systolic 126–204; BP diastolic 70–114
[2020-11-16] MEDS: DIAZEPAM 5 MG TABLET PO SCH ×3 (01:34→16:18)
[2020-11-16] MEDS: ROCURONIUM BROMIDE 250 MG in SODIUM CHLORIDE 0.9% 250 ML IV SCH ×5 (01:34→22:44)
[2020-11-16] MEDS: FENTANYL 2500MCG+NS 250ML 250 ML IV SCH ×3 (01:51→16:09)
[2020-11-16] MEDS: MIDAZOLAM 100MG-0.9% NS 100ML 100ML BAG IV SCH ×4 (01:52→22:10)
[2020-11-16] MEDS: METHYLPREDNISOLONE SOD SUCC 125MG/2ML VIAL IVP SCH ×3 (05:11→21:17)
[2020-11-16 05:32] LABS: HEMATOCRIT 38.3 % (42-54); MEAN CORPUSCULAR HEMOGLOBIN 30.4 pg (27.0-33.0); MEAN CORPUSCULAR HGB CONC 31.1 g/dL (32.0-36.0); MEAN CORPUSCULAR VOLUME 97.7 fL (79-99); RED BLOOD CELL COUNT(AUTO) 3.92 MIL/uL (4.50-6.20); WHITE BLOOD COUNT (AUTO) 16.7 K/uL (4.8-10.8)
[2020-11-16 05:44] LABS: CREATININE 0.6 mg/dL (0.5-1.5); POTASSIUM 4.5 mmol/L (3.5-5.1)
[2020-11-16 06:35] LABS: ABG BASE EXCESS 3.9 mmol/L (-2.0-3.0); ABG HCO3 30.3 mmol/L (21.0-28.0); ABG OXYGEN SATURATION 87.7 % (95.0-99.0); ABG PCO2 52 mmHg (35-48)
[2020-11-16] MEDS: INSULIN HUMULIN R 100 UNIT/ML 3ML SQ SCH ×4 (07:16→21:16)
[2020-11-16] MEDS: POLYETHYLENE GLYCOL 3350 17 GM POWD.PACK PO SCH (08:38)
[2020-11-16] MEDS: DOCUSATE NA 100MG/10ML UDCUP NG SCH ×2 (08:38→21:15)
[2020-11-16] MEDS: FAMOTIDINE/PF 20 MG/2 ML VIAL IV SCH ×2 (08:39→21:14)
[2020-11-16] MEDS: FONDAPARINUX SODIUM 2.5 MG/0.5 ML SQ SCH (08:39)
[2020-11-16] MEDS: NITROGLYCERIN 1GM/1 INCH PACKET TD PRN (09:28)
[2020-11-16] MEDS ORDERED: NICARDIPINE HCL 50 MG in SODIUM CHLORIDE 0.9% 230 ML IV SCH ×2 (10:15→10:30)
[2020-11-16] MEDS ORDERED: FENTANYL CITRATE PF 0.05 MG/ML 2,500 MCG in SODIUM CHLORIDE 0.9% 250 ML IVPB SCH (18:45)
[2020-11-16] MEDS: NICARDIPINE 100 MG/100ML IV SCH ×2 (21:24)
[2020-11-17] VITALS (16 sets, daily range): BP systolic 128–180; BP diastolic 71–90
[2020-11-17] MEDS: DIAZEPAM 5 MG TABLET PO SCH ×3 (00:58→16:57)
[2020-11-17 05:08] LABS: HEMATOCRIT 39.6 % (42-54); LYMPHOCYTES % (AUTO) 1.8 % (21.0-51.0); MEAN CORPUSCULAR HEMOGLOBIN 30.2 pg (27.0-33.0); MEAN CORPUSCULAR HGB CONC 31.1 g/dL (32.0-36.0); MEAN CORPUSCULAR VOLUME 97.3 fL (79-99); MONOCYTES % (AUTO) 2.1 % (3.0-13.0); NEUTROPHILS % (AUTO) 95.3 % (40.0-77.0); PLATELET COUNT (AUTO) 81 K/uL (130-400); RED BLOOD CELL COUNT(AUTO) 4.07 MIL/uL (4.50-6.20); RED CELL DISTRIBUTION WIDTH 12.1 % (11.0-15.5); WHITE BLOOD COUNT (AUTO) 23.3 K/uL (4.8-10.8)
[2020-11-17 05:49] LABS: BILIRUBIN,TOTAL 0.5 mg/dL (0.2-1.0); CREATININE 0.6 mg/dL (0.5-1.5); POTASSIUM 5.3 mmol/L (3.5-5.1); TOTAL PROTEIN, SERUM 5.1 g/dL (6.0-8.3)
[2020-11-17] MEDS: METHYLPREDNISOLONE SOD SUCC 125MG/2ML VIAL IVP SCH ×3 (06:34→20:50)
[2020-11-17] MEDS: INSULIN HUMULIN R 100 UNIT/ML 3ML SQ SCH ×4 (06:35→20:49)
[2020-11-17] MEDS: FAMOTIDINE/PF 20 MG/2 ML VIAL IV SCH ×2 (08:47→20:47)
[2020-11-17] MEDS: POLYETHYLENE GLYCOL 3350 17 GM POWD.PACK PO SCH (08:48)
[2020-11-17] MEDS: DOCUSATE NA 100MG/10ML UDCUP NG SCH ×2 (08:48→20:48)
[2020-11-17] MEDS: FENTANYL 2500MCG+NS 250ML 250 ML IV SCH (08:49)
[2020-11-17] MEDS: ROCURONIUM BROMIDE 250 MG in SODIUM CHLORIDE 0.9% 250 ML IV SCH (08:50)
[2020-11-17] MEDS: FONDAPARINUX SODIUM 2.5 MG/0.5 ML SQ SCH (09:00)
[2020-11-17] MEDS ORDERED: METHYLNALTREXONE BROMIDE 12 MG/0.6 ML VIAL SQ SCH (11:27)
[2020-11-17] MEDS: METOCLOPRAMIDE 10 MG/2 ML VIAL IVP SCH ×3 (13:18→20:50)
[2020-11-17] MEDS: METOPROLOL TARTRATE 1 MG/ML 5ML VIAL IV PRN ×2 (13:18→22:09)
[2020-11-17] MEDS ORDERED: FONDAPARINUX SODIUM 2.5 MG/0.5 ML SQ SCH (15:45)
[2020-11-17] MEDS ORDERED: MAGNESIUM CITRATE 296 ML SOLUTION PO SCH (16:00)
[2020-11-17] MEDS: NICARDIPINE 100 MG/100ML IV SCH ×2 (16:53)
[2020-11-18] VITALS (35 sets, daily range): BP systolic 112–142; BP diastolic 64–82
[2020-11-18] MEDS: DIAZEPAM 5 MG TABLET PO SCH ×3 (01:35→16:58)
[2020-11-18] MEDS: FENTANYL 2500MCG+NS 250ML 250 ML IV SCH ×2 (01:39→09:35)
[2020-11-18 04:05] LABS: HEMATOCRIT 37.9 % (42-54); MEAN CORPUSCULAR HEMOGLOBIN 31.1 pg (27.0-33.0); MEAN CORPUSCULAR HGB CONC 31.1 g/dL (32.0-36.0); PLATELET COUNT (AUTO) 62 K/uL (130-400); RED BLOOD CELL COUNT(AUTO) 3.79 MIL/uL (4.50-6.20); RED CELL DISTRIBUTION WIDTH 12.3 % (11.0-15.5); WHITE BLOOD COUNT (AUTO) 29.9 K/uL (4.8-10.8)
[2020-11-18 04:29] LABS: CREATININE 0.7 mg/dL (0.5-1.5)
[2020-11-18] MEDS: METOCLOPRAMIDE 10 MG/2 ML VIAL IVP SCH ×4 (04:31→21:48)
[2020-11-18] MEDS: METOPROLOL TARTRATE 1 MG/ML 5ML VIAL IV PRN (04:32)
[2020-11-18 05:15] LABS: ABG BASE EXCESS 7.6 mmol/L (-2.0-3.0); ABG HCO3 38.8 mmol/L (21.0-28.0); ABG OXYGEN SATURATION 91.3 % (95.0-99.0); ABG PCO2 91 mmHg (35-48)
[2020-11-18] MEDS: METHYLPREDNISOLONE SOD SUCC 125MG/2ML VIAL IVP SCH ×3 (06:01→21:13)
[2020-11-18] MEDS: INSULIN HUMULIN R 100 UNIT/ML 3ML SQ SCH ×4 (06:33→23:48)
[2020-11-18] MEDS: FONDAPARINUX SODIUM 2.5 MG/0.5 ML SQ SCH (09:00)
[2020-11-18] MEDS: POLYETHYLENE GLYCOL 3350 17 GM POWD.PACK PO SCH (09:33)
[2020-11-18] MEDS: FAMOTIDINE/PF 20 MG/2 ML VIAL IV SCH ×2 (09:33→21:13)
[2020-11-18] MEDS: DOCUSATE NA 100MG/10ML UDCUP NG SCH ×2 (09:33→21:13)
[2020-11-18] MEDS: ROCURONIUM BROMIDE 250 MG in SODIUM CHLORIDE 0.9% 250 ML IV SCH ×2 (09:35→18:03)
[2020-11-18] MEDS: NICARDIPINE 100 MG/100ML IV SCH ×2 (09:36)
[2020-11-18] MEDS: LEVOFLOXACIN 500 MG/D5W 100 ML 100 ML IV SCH (14:30)
[2020-11-18] MEDS: ZOSYN 3.375GM+NS 50ML 50 ML IV SCH ×2 (15:00→21:13)
[2020-11-19] VITALS (40 sets, daily range): BP systolic 113–164; BP diastolic 64–102
[2020-11-19] MEDS: DIAZEPAM 5 MG TABLET PO SCH ×3 (00:24→16:42)
[2020-11-19] MEDS: METOPROLOL TARTRATE 1 MG/ML 5ML VIAL IV PRN ×4 (00:56→23:31)
[2020-11-19] MEDS: INSULIN HUMULIN R 100 UNIT/ML 3ML SQ SCH ×4 (01:30→18:01)
[2020-11-19 04:26] LABS: HEMATOCRIT 38.4 % (42-54); LYMPHOCYTES % (AUTO) 1.2 % (21.0-51.0); MEAN CORPUSCULAR HGB CONC 29.4 g/dL (32.0-36.0); MEAN CORPUSCULAR VOLUME 101.9 fL (79-99); MONOCYTES % (AUTO) 1.7 % (3.0-13.0); NUCLEATED RED BLOOD CELLS 0.1 % (0.0-0.19); PLATELET COUNT (AUTO) 45 K/uL (130-400); RED BLOOD CELL COUNT(AUTO) 3.77 MIL/uL (4.50-6.20); RED CELL DISTRIBUTION WIDTH 12.9 % (11.0-15.5); WHITE BLOOD COUNT (AUTO) 22.6 K/uL (4.8-10.8)
[2020-11-19 04:42] LABS: BILIRUBIN,TOTAL 0.4 mg/dL (0.2-1.0); CREATININE 0.7 mg/dL (0.5-1.5); POTASSIUM 5.3 mmol/L (3.5-5.1); TOTAL PROTEIN, SERUM 4.7 g/dL (6.0-8.3)
[2020-11-19 04:43] LABS: ABG BASE EXCESS 12.4 mmol/L (-2.0-3.0); ABG HCO3 41.1 mmol/L (21.0-28.0); ABG PCO2 71 mmHg (35-48)
[2020-11-19] MEDS: METOCLOPRAMIDE 10 MG/2 ML VIAL IVP SCH ×4 (04:45→20:45)
[2020-11-19] MEDS: ROCURONIUM BROMIDE 250 MG in SODIUM CHLORIDE 0.9% 250 ML IV SCH ×2 (04:47→15:29)
[2020-11-19] MEDS: METHYLPREDNISOLONE SOD SUCC 125MG/2ML VIAL IVP SCH ×3 (05:24→20:46)
[2020-11-19] MEDS: ZOSYN 3.375GM+NS 50ML 50 ML IV SCH ×3 (05:24→20:48)
[2020-11-19] MEDS: POLYETHYLENE GLYCOL 3350 17 GM POWD.PACK PO SCH (08:52)
[2020-11-19] MEDS: DOCUSATE NA 100MG/10ML UDCUP NG SCH ×2 (08:53→20:46)
[2020-11-19] MEDS: FONDAPARINUX SODIUM 2.5 MG/0.5 ML SQ SCH (08:53)
[2020-11-19] MEDS: FAMOTIDINE/PF 20 MG/2 ML VIAL IV SCH ×2 (08:53→20:45)
[2020-11-19] MEDS: FENTANYL 2500MCG+NS 250ML 250 ML IV SCH (08:56)
[2020-11-19] MEDS ORDERED: CALCIUM GLUCONATE 1 GM/10 ML VIAL IV SCH (13:15)
[2020-11-19] MEDS ORDERED: PHARMACY COMMUNICATION MISC SCH (13:30)
[2020-11-19] MEDS: LEVOFLOXACIN 500 MG/D5W 100 ML 100 ML IV SCH (13:37)
[2020-11-19] MEDS ORDERED: CALCIUM GLUCONATE 1 GM in SODIUM CHLORIDE 0.9% 100 ML IV SCH (14:45)
[2020-11-19] MEDS ORDERED: DEXTROSE 50%-WATER 50 ML DISP.SYRIN IV SCH (15:00)
[2020-11-19] MEDS: LACTULOSE 20 GM/30 ML UDCUP PO SCH ×2 (15:35→20:46)
[2020-11-19] MEDS ORDERED: INSULIN HUMULIN R 100 UNIT/ML 3ML IV SCH (15:45)
[2020-11-19] MEDS ORDERED: SODIUM POLYSTYRENE SULFONATE 15 GM/60 ML ML PO SCH (15:45)
[2020-11-19] MEDS ORDERED: SODIUM BICARB 50MEQ 50ML VIAL IV SCH (15:48)
[2020-11-19] MEDS: DAPTOMYCIN 500 MG in SODIUM CHLORIDE 0.9% 50 ML IV SCH (16:42)
[2020-11-20] VITALS (14 sets, daily range): BP systolic 113–151; BP diastolic 62–88
[2020-11-20] MEDS: INSULIN HUMULIN R 100 UNIT/ML 3ML SQ SCH ×4 (00:56→18:09)
[2020-11-20] MEDS: DIAZEPAM 5 MG TABLET PO SCH ×3 (00:58→16:21)
[2020-11-20] MEDS: FENTANYL 2500MCG+NS 250ML 250 ML IV SCH ×2 (01:10→10:09)
[2020-11-20] MEDS: ROCURONIUM BROMIDE 250 MG in SODIUM CHLORIDE 0.9% 250 ML IV SCH ×3 (01:14→21:27)
[2020-11-20] MEDS: METOCLOPRAMIDE 10 MG/2 ML VIAL IVP SCH ×4 (04:23→21:13)
[2020-11-20] MEDS: ZOSYN 3.375GM+NS 50ML 50 ML IV SCH ×3 (05:08→21:13)
[2020-11-20] MEDS: METHYLPREDNISOLONE SOD SUCC 125MG/2ML VIAL IVP SCH ×3 (05:09→21:12)
[2020-11-20 05:28] LABS: BASOPHILS % (AUTO) 0.1 % (0.0-5.0); EOSINOPHILS % (AUTO) 0.9 % (0.0-8.0); HEMATOCRIT 34.6 % (42-54); LYMPHOCYTES % (AUTO) 1.7 % (21.0-51.0); MEAN CORPUSCULAR HEMOGLOBIN 31.2 pg (27.0-33.0); MEAN CORPUSCULAR HGB CONC 30.3 g/dL (32.0-36.0); MEAN CORPUSCULAR VOLUME 102.7 fL (79-99); MONOCYTES % (AUTO) 1.5 % (3.0-13.0); NEUTROPHILS % (AUTO) 92.9 % (40.0-77.0); NUCLEATED RED BLOOD CELLS 0.1 % (0.0-0.19); PLATELET COUNT (AUTO) 43 K/uL (130-400); RED BLOOD CELL COUNT(AUTO) 3.37 MIL/uL (4.50-6.20); RED CELL DISTRIBUTION WIDTH 13.2 % (11.0-15.5); WHITE BLOOD COUNT (AUTO) 20.8 K/uL (4.8-10.8)
[2020-11-20 05:55] LABS: ALBUMIN 1.7 g/dL (3.5-5.0); BILIRUBIN,TOTAL 0.2 mg/dL (0.2-1.0); CREATININE 0.6 mg/dL (0.5-1.5); POTASSIUM 5.2 mmol/L (3.5-5.1); TOTAL PROTEIN, SERUM 4.6 g/dL (6.0-8.3)
[2020-11-20] MEDS: METOPROLOL TARTRATE 1 MG/ML 5ML VIAL IV PRN (06:29)
[2020-11-20] MEDS: POLYETHYLENE GLYCOL 3350 17 GM POWD.PACK PO SCH (08:20)
[2020-11-20] MEDS: DOCUSATE NA 100MG/10ML UDCUP NG SCH ×2 (08:20→21:00)
[2020-11-20] MEDS: LACTULOSE 20 GM/30 ML UDCUP PO SCH ×2 (08:20→21:00)
[2020-11-20] MEDS: FAMOTIDINE/PF 20 MG/2 ML VIAL IV SCH ×2 (08:20→21:05)
[2020-11-20] MEDS: LEVOFLOXACIN 500 MG/D5W 100 ML 100 ML IV SCH (13:36)
[2020-11-20] MEDS: DEXTROSE 5%-WATER 1,000 ML IV SCH (13:43)
[2020-11-20] MEDS: DAPTOMYCIN 500 MG in SODIUM CHLORIDE 0.9% 50 ML IV SCH (16:53)
[2020-11-21] VITALS (18 sets, daily range): BP systolic 104–157; BP diastolic 64–90
[2020-11-21] MEDS: METOPROLOL TARTRATE 1 MG/ML 5ML VIAL IV PRN ×2 (00:48→22:26)
[2020-11-21] MEDS: DIAZEPAM 5 MG TABLET PO SCH ×3 (01:04→16:18)
[2020-11-21 04:52] LABS: BASOPHILS % (AUTO) 0.1 % (0.0-5.0); EOSINOPHILS % (AUTO) 0.5 % (0.0-8.0); HEMATOCRIT 35.2 % (42-54); LYMPHOCYTES % (AUTO) 3.2 % (21.0-51.0); MEAN CORPUSCULAR HEMOGLOBIN 30.2 pg (27.0-33.0); MEAN CORPUSCULAR HGB CONC 29.5 g/dL (32.0-36.0); MEAN CORPUSCULAR VOLUME 102.3 fL (79-99); NEUTROPHILS % (AUTO) 93.1 % (40.0-77.0); NUCLEATED RED BLOOD CELLS 0.2 % (0.0-0.19); PLATELET COUNT (AUTO) 42 K/uL (130-400); RED BLOOD CELL COUNT(AUTO) 3.44 MIL/uL (4.50-6.20); RED CELL DISTRIBUTION WIDTH 13.3 % (11.0-15.5); WHITE BLOOD COUNT (AUTO) 22.9 K/uL (4.8-10.8)
[2020-11-21] MEDS: METOCLOPRAMIDE 10 MG/2 ML VIAL IVP SCH ×4 (04:55→22:26)
[2020-11-21 05:09] LABS: ALBUMIN 1.8 g/dL (3.5-5.0); BILIRUBIN,TOTAL 0.4 mg/dL (0.2-1.0); CREATININE 0.5 mg/dL (0.5-1.5); POTASSIUM 4.5 mmol/L (3.5-5.1); TOTAL PROTEIN, SERUM 4.5 g/dL (6.0-8.3)
[2020-11-21] MEDS: ZOSYN 3.375GM+NS 50ML 50 ML IV SCH ×3 (05:17→22:26)
[2020-11-21] MEDS: METHYLPREDNISOLONE SOD SUCC 125MG/2ML VIAL IVP SCH ×3 (05:17→22:25)
[2020-11-21] MEDS: DEXTROSE 5%-WATER 1,000 ML IV SCH (06:09)
[2020-11-21] MEDS: INSULIN HUMULIN R 100 UNIT/ML 3ML SQ SCH ×4 (06:28→16:21)
[2020-11-21] MEDS: FENTANYL 2500MCG+NS 250ML 250 ML IV SCH (06:30)
[2020-11-21] MEDS: POLYETHYLENE GLYCOL 3350 17 GM POWD.PACK PO SCH (09:50)
[2020-11-21] MEDS: LACTULOSE 20 GM/30 ML UDCUP PO SCH ×2 (09:50→22:25)
[2020-11-21] MEDS: DOCUSATE NA 100MG/10ML UDCUP NG SCH ×2 (09:50→22:25)
[2020-11-21] MEDS: FAMOTIDINE/PF 20 MG/2 ML VIAL IV SCH ×2 (09:50→22:25)
[2020-11-21] MEDS: LEVOFLOXACIN 500 MG/D5W 100 ML 100 ML IV SCH (13:50)
[2020-11-21] MEDS: DAPTOMYCIN 500 MG in SODIUM CHLORIDE 0.9% 50 ML IV SCH (16:18)
[2020-11-22] VITALS (40 sets, daily range): BP systolic 79–168; BP diastolic 44–88
[2020-11-22] MEDS: DEXTROSE 5%-WATER 1,000 ML IV SCH ×2 (00:38→15:30)
[2020-11-22] MEDS: INSULIN HUMULIN R 100 UNIT/ML 3ML SQ SCH ×4 (00:39→18:06)
[2020-11-22] MEDS: DIAZEPAM 5 MG TABLET PO SCH ×3 (00:44→16:42)
[2020-11-22] MEDS: METOCLOPRAMIDE 10 MG/2 ML VIAL IVP SCH ×4 (04:07→20:44)
[2020-11-22 04:31] LABS: BASOPHILS % (AUTO) 0.1 % (0.0-5.0); HEMATOCRIT 31.4 % (42-54); LYMPHOCYTES % (AUTO) 2.1 % (21.0-51.0); MEAN CORPUSCULAR HEMOGLOBIN 29.7 pg (27.0-33.0); MEAN CORPUSCULAR VOLUME 102.6 fL (79-99); MONOCYTES % (AUTO) 2.1 % (3.0-13.0); NEUTROPHILS % (AUTO) 94.8 % (40.0-77.0); NUCLEATED RED BLOOD CELLS 0.2 % (0.0-0.19); PLATELET COUNT (AUTO) 43 K/uL (130-400); RED BLOOD CELL COUNT(AUTO) 3.06 MIL/uL (4.50-6.20); RED CELL DISTRIBUTION WIDTH 13.1 % (11.0-15.5); WHITE BLOOD COUNT (AUTO) 18.6 K/uL (4.8-10.8)
[2020-11-22 04:55] LABS: ALBUMIN 1.8 g/dL (3.5-5.0); BILIRUBIN,TOTAL 0.4 mg/dL (0.2-1.0); CREATININE 0.6 mg/dL (0.5-1.5); POTASSIUM 4.2 mmol/L (3.5-5.1); TOTAL PROTEIN, SERUM 4.4 g/dL (6.0-8.3)
[2020-11-22] MEDS: METHYLPREDNISOLONE SOD SUCC 125MG/2ML VIAL IVP SCH ×3 (06:49→20:44)
[2020-11-22] MEDS: ZOSYN 3.375GM+NS 50ML 50 ML IV SCH ×3 (06:49→20:43)
[2020-11-22] MEDS ORDERED: PHARMACY COMMUNICATION MISC SCH (08:00)
[2020-11-22] MEDS: LACTULOSE 20 GM/30 ML UDCUP PO SCH ×2 (10:00→20:43)
[2020-11-22] MEDS: DOCUSATE NA 100MG/10ML UDCUP NG SCH ×2 (10:00→20:43)
[2020-11-22] MEDS: POLYETHYLENE GLYCOL 3350 17 GM POWD.PACK PO SCH (10:00)
[2020-11-22] MEDS: FAMOTIDINE/PF 20 MG/2 ML VIAL IV SCH ×2 (10:01→20:43)
[2020-11-22] MEDS: FENTANYL 2500MCG+NS 250ML 250 ML IV SCH (10:02)
[2020-11-22] MEDS: MIDAZOLAM 100MG-0.9% NS 100ML 100 ML IV SCH ×2 (10:03→19:19)
[2020-11-22] MEDS: NOREPINEPHRINE 4MG/NS 250ML 250 ML IV SCH (11:10)
[2020-11-22] MEDS: LEVOFLOXACIN 500 MG/D5W 100 ML 100 ML IV SCH (14:30)
[2020-11-22] MEDS: ROCURONIUM BROMIDE 250 MG in SODIUM CHLORIDE 0.9% 250 ML IV SCH ×2 (15:54→23:42)
[2020-11-22] MEDS: DAPTOMYCIN 500 MG in SODIUM CHLORIDE 0.9% 50 ML IV SCH (16:32)
[2020-11-23] VITALS (34 sets, daily range): BP systolic 106–154; BP diastolic 56–80
[2020-11-23] MEDS: FENTANYL 2500MCG+NS 250ML 250 ML IV SCH ×2 (00:05→18:52)
[2020-11-23] MEDS: INSULIN HUMULIN R 100 UNIT/ML 3ML SQ SCH ×4 (00:06→17:15)
[2020-11-23] MEDS: DIAZEPAM 5 MG TABLET PO SCH ×2 (00:11→08:26)
[2020-11-23 04:51] LABS: BASOPHILS % (AUTO) 0.1 % (0.0-5.0); HEMATOCRIT 28.2 % (42-54); LYMPHOCYTES % (AUTO) 2.8 % (21.0-51.0); MEAN CORPUSCULAR HEMOGLOBIN 30.2 pg (27.0-33.0); MEAN CORPUSCULAR HGB CONC 29.8 g/dL (32.0-36.0); MEAN CORPUSCULAR VOLUME 101.4 fL (79-99); MONOCYTES % (AUTO) 2.2 % (3.0-13.0); NEUTROPHILS % (AUTO) 93.4 % (40.0-77.0); PLATELET COUNT (AUTO) 49 K/uL (130-400); RED BLOOD CELL COUNT(AUTO) 2.78 MIL/uL (4.50-6.20); WHITE BLOOD COUNT (AUTO) 12.2 K/uL (4.8-10.8)
[2020-11-23] MEDS: METOCLOPRAMIDE 10 MG/2 ML VIAL IVP SCH ×4 (04:55→20:15)
[2020-11-23 05:05] LABS: ALBUMIN 1.7 g/dL (3.5-5.0); BILIRUBIN,TOTAL 0.4 mg/dL (0.2-1.0); CREATININE 0.6 mg/dL (0.5-1.5); CRP QUANTITATIVE 2.5 mg/L (0.00-9.0)
[2020-11-23 05:05] LABS: ABG BASE EXCESS 7.7 mmol/L (-2.0-3.0); ABG HCO3 36.4 mmol/L (21.0-28.0); ABG OXYGEN SATURATION 86.6 % (95.0-99.0); ABG PCO2 70 mmHg (35-48)
[2020-11-23] MEDS: ZOSYN 3.375GM+NS 50ML 50 ML IV SCH ×3 (05:17→20:15)
[2020-11-23] MEDS: METHYLPREDNISOLONE SOD SUCC 125MG/2ML VIAL IVP SCH ×3 (05:17→20:15)
[2020-11-23] MEDS: MIDAZOLAM 100MG-0.9% NS 100ML 100 ML IV SCH ×2 (07:58→18:49)
[2020-11-23] MEDS: DEXTROSE 5%-WATER 1,000 ML IV SCH (08:10)
[2020-11-23] MEDS: ALBUMIN (HUMAN) 25% 100 ML IV SCH ×2 (08:25→20:07)
[2020-11-23] MEDS: LACTULOSE 20 GM/30 ML UDCUP PO SCH ×2 (08:26→20:04)
[2020-11-23] MEDS: POLYETHYLENE GLYCOL 3350 17 GM POWD.PACK PO SCH (08:26)
[2020-11-23] MEDS: PANTOPRAZOLE SODIUM 40 MG TABLET.DR PO SCH ×2 (08:26→20:05)
[2020-11-23] MEDS: DOCUSATE NA 100MG/10ML UDCUP NG SCH ×2 (08:27→20:04)
[2020-11-23] MEDS: FUROSEMIDE 10 MG/ML 2ML VIAL IV SCH ×2 (08:27→20:04)
[2020-11-23] MEDS: ROCURONIUM BROMIDE 250 MG in SODIUM CHLORIDE 0.9% 250 ML IV SCH ×2 (10:26→16:06)
[2020-11-23] MEDS: LEVOFLOXACIN 500 MG/D5W 100 ML 100 ML IV SCH (14:01)
[2020-11-23] MEDS: DAPTOMYCIN 500 MG in SODIUM CHLORIDE 0.9% 50 ML IV SCH (16:00)
[2020-11-24] VITALS (24 sets, daily range): BP systolic 83–152; BP diastolic 43–78
[2020-11-24] MEDS: ROCURONIUM BROMIDE 250 MG in SODIUM CHLORIDE 0.9% 250 ML IV SCH ×4 (00:02→22:16)
[2020-11-24] MEDS: INSULIN HUMULIN R 100 UNIT/ML 3ML SQ SCH ×4 (00:03→17:19)
[2020-11-24] MEDS: DEXTROSE 5%-WATER 1,000 ML IV SCH ×2 (00:50→17:30)
[2020-11-24] MEDS: METOCLOPRAMIDE 10 MG/2 ML VIAL IVP SCH ×4 (04:00→20:41)
[2020-11-24 04:34] LABS: BASOPHILS % (AUTO) 0.1 % (0.0-5.0); HEMATOCRIT 24.3 % (42-54); LYMPHOCYTES % (AUTO) 3.8 % (21.0-51.0); MEAN CORPUSCULAR HEMOGLOBIN 30.2 pg (27.0-33.0); MEAN CORPUSCULAR VOLUME 100.4 fL (79-99); MONOCYTES % (AUTO) 2.2 % (3.0-13.0); NEUTROPHILS % (AUTO) 92.5 % (40.0-77.0); PLATELET COUNT (AUTO) 63 K/uL (130-400); RED BLOOD CELL COUNT(AUTO) 2.42 MIL/uL (4.50-6.20); RED CELL DISTRIBUTION WIDTH 12.7 % (11.0-15.5); WHITE BLOOD COUNT (AUTO) 9.9 K/uL (4.8-10.8)
[2020-11-24 04:56] LABS: ALBUMIN 2.6 g/dL (3.5-5.0); BILIRUBIN,TOTAL 0.4 mg/dL (0.2-1.0); CREATININE 0.5 mg/dL (0.5-1.5); POTASSIUM 3.1 mmol/L (3.5-5.1); TOTAL PROTEIN, SERUM 4.4 g/dL (6.0-8.3)
[2020-11-24] MEDS: ZOSYN 3.375GM+NS 50ML 50 ML IV SCH ×3 (06:30→20:41)
[2020-11-24] MEDS: METHYLPREDNISOLONE SOD SUCC 125MG/2ML VIAL IVP SCH ×3 (06:30→20:41)
[2020-11-24] MEDS: MIDAZOLAM 100MG-0.9% NS 100ML 100 ML IV SCH ×2 (06:35→20:23)
[2020-11-24 07:10] LABS: ABG OXYGEN SATURATION 64.8 % (95.0-99.0)
[2020-11-24 07:14] LABS: ABG BASE EXCESS 10.7 mmol/L (-2.0-3.0); ABG HCO3 41.6 mmol/L (21.0-28.0); ABG OXYGEN SATURATION 57.5 % (95.0-99.0); ABG PCO2 89 mmHg (35-48)
[2020-11-24 07:31] LABS: ABG HCO3 41.8 mmol/L (21.0-28.0); ABG OXYGEN SATURATION 95.1 % (95.0-99.0); ABG PCO2 89 mmHg (35-48)
[2020-11-24] MEDS ORDERED: POTASSIUM CHLORIDE 20MEQ/100ML 100 ML IV PRN (08:00)
[2020-11-24] MEDS: ALBUMIN (HUMAN) 25% 100 ML IV SCH ×4 (08:42→20:37)
[2020-11-24] MEDS: POTASSIUM CHLORIDE 20MEQ/100ML 100 ML IV PRN ×3 (08:42→17:37)
[2020-11-24] MEDS: PANTOPRAZOLE SODIUM 40 MG TABLET.DR PO SCH ×2 (08:43→20:38)
[2020-11-24] MEDS: POTASSIUM CHLORIDE 10% ELIXIR 20 MEQ/15 ML UDCUP PO PRN ×2 (08:43→13:48)
[2020-11-24] MEDS: FUROSEMIDE 10 MG/ML 2ML VIAL IV SCH ×4 (08:43→20:37)
[2020-11-24] MEDS: LACTULOSE 20 GM/30 ML UDCUP PO SCH ×2 (08:43→20:38)
[2020-11-24] MEDS: SENNOSIDES 8.6 MG TABLET PO SCH ×2 (09:00→20:38)
[2020-11-24 11:11] LABS: ABG HCO3 40.3 mmol/L (21.0-28.0); ABG OXYGEN SATURATION 95.8 % (95.0-99.0); ABG PCO2 68 mmHg (35-48)
[2020-11-24] MEDS: FENTANYL 2500MCG+NS 250ML 250 ML IV SCH (11:55)
[2020-11-24 12:47] LABS: BILIRUBIN,TOTAL 0.5 mg/dL (0.2-1.0); CREATININE 0.5 mg/dL (0.5-1.5); POTASSIUM 3.2 mmol/L (3.5-5.1); TOTAL PROTEIN, SERUM 4.8 g/dL (6.0-8.3)
[2020-11-24] MEDS: LEVOFLOXACIN 500 MG/D5W 100 ML 100 ML IV SCH (13:46)
[2020-11-24 16:36] LABS: ALBUMIN 3.1 g/dL (3.5-5.0); BILIRUBIN,TOTAL 0.6 mg/dL (0.2-1.0); CREATININE 0.5 mg/dL (0.5-1.5); POTASSIUM 3.6 mmol/L (3.5-5.1); TOTAL PROTEIN, SERUM 5.1 g/dL (6.0-8.3)
[2020-11-24] MEDS: DAPTOMYCIN 500 MG in SODIUM CHLORIDE 0.9% 50 ML IV SCH (17:11)
[2020-11-24] MEDS: CALCIUM GLUCONATE 1 GM in SODIUM CHLORIDE 0.9% 100 ML IV PRN (19:55)
[2020-11-24] MEDS: NOREPINEPHRINE 4MG/NS 250ML 250 ML IV SCH (20:11)
[2020-11-25] VITALS (54 sets, daily range): BP systolic 99–159; BP diastolic 48–74
[2020-11-25] MEDS: INSULIN HUMULIN R 100 UNIT/ML 3ML SQ SCH ×4 (00:40→17:10)
[2020-11-25] MEDS: DEXTROSE 5%-WATER 1,000 ML IV SCH (00:40)
[2020-11-25] MEDS: METOCLOPRAMIDE 10 MG/2 ML VIAL IVP SCH ×4 (04:31→20:22)
[2020-11-25] MEDS: ZOSYN 3.375GM+NS 50ML 50 ML IV SCH ×3 (06:01→20:22)
[2020-11-25] MEDS: METHYLPREDNISOLONE SOD SUCC 125MG/2ML VIAL IVP SCH ×3 (06:01→20:22)
[2020-11-25] MEDS: ROCURONIUM BROMIDE 250 MG in SODIUM CHLORIDE 0.9% 250 ML IV SCH ×2 (07:57→17:05)
[2020-11-25] MEDS: FUROSEMIDE 10 MG/ML 2ML VIAL IV SCH ×3 (09:42→20:21)
[2020-11-25] MEDS: LACTULOSE 20 GM/30 ML UDCUP PO SCH ×2 (09:42→20:22)
[2020-11-25] MEDS: PANTOPRAZOLE SODIUM 40 MG TABLET.DR PO SCH (09:43)
[2020-11-25] MEDS: ALBUMIN (HUMAN) 25% 100 ML IV SCH ×3 (09:43→20:21)
[2020-11-25] MEDS: SENNOSIDES 8.6 MG TABLET PO SCH ×2 (09:43→20:22)
[2020-11-25] MEDS: MIDAZOLAM 100MG-0.9% NS 100ML 100 ML IV SCH (11:40)
[2020-11-25] MEDS: LEVOFLOXACIN 500 MG/D5W 100 ML 100 ML IV SCH (14:44)
[2020-11-25] MEDS: FENTANYL 2500MCG+NS 250ML 250 ML IV SCH (15:45)
[2020-11-25] MEDS: DAPTOMYCIN 500 MG in SODIUM CHLORIDE 0.9% 50 ML IV SCH (17:05)
[2020-11-25] MEDS: PANTOPRAZOLE 40 MG/VIAL IVP SCH (20:22)
[2020-11-26] VITALS (52 sets, daily range): BP systolic 106–158; BP diastolic 53–84
[2020-11-26] MEDS: INSULIN HUMULIN R 100 UNIT/ML 3ML SQ SCH ×4 (00:48→17:05)
[2020-11-26] MEDS: DEXTROSE 5%-WATER 1,000 ML IV SCH ×2 (02:51→19:42)
[2020-11-26 03:56] LABS: BASOPHILS % (AUTO) 0.1 % (0.0-5.0); HEMATOCRIT 21.6 % (42-54); LYMPHOCYTES % (AUTO) 4.3 % (21.0-51.0); MEAN CORPUSCULAR HEMOGLOBIN 30.7 pg (27.0-33.0); MEAN CORPUSCULAR HGB CONC 31.9 g/dL (32.0-36.0); NEUTROPHILS % (AUTO) 92.7 % (40.0-77.0); NUCLEATED RED BLOOD CELLS 0.3 % (0.0-0.19); PLATELET COUNT (AUTO) 82 K/uL (130-400); RED BLOOD CELL COUNT(AUTO) 2.25 MIL/uL (4.50-6.20); RED CELL DISTRIBUTION WIDTH 12.9 % (11.0-15.5); WHITE BLOOD COUNT (AUTO) 10.7 K/uL (4.8-10.8)
[2020-11-26 04:08] LABS: ALBUMIN 3.6 g/dL (3.5-5.0); BILIRUBIN,TOTAL 0.6 mg/dL (0.2-1.0); CREATININE 0.5 mg/dL (0.5-1.5); MAGNESIUM 1.6 mg/dL (1.80-2.40); TOTAL PROTEIN, SERUM 5.4 g/dL (6.0-8.3)
[2020-11-26 04:10] LABS: INR 1.06 (0.85-1.15); POTASSIUM 2.5 mmol/L (3.5-5.1); PROTHROMBIN TIME 11.5 SEC (9.6-11.6)
[2020-11-26 04:11] LABS: PARTIAL THROMBOPLASTIN TIME 28.2 SEC (26.3-35.5)
[2020-11-26] MEDS: ZOSYN 3.375GM+NS 50ML 50 ML IV SCH ×3 (05:07→20:55)
[2020-11-26] MEDS: METHYLPREDNISOLONE SOD SUCC 125MG/2ML VIAL IVP SCH ×3 (05:07→20:55)
[2020-11-26] MEDS: METOCLOPRAMIDE 10 MG/2 ML VIAL IVP SCH ×4 (05:07→20:55)
[2020-11-26] MEDS: POTASSIUM CHLORIDE 20MEQ/100ML 100 ML IV PRN ×2 (05:12→08:10)
[2020-11-26] MEDS: POTASSIUM CHLORIDE 10% ELIXIR 20 MEQ/15 ML UDCUP PO PRN (06:00)
[2020-11-26] MEDS: FUROSEMIDE 10 MG/ML 2ML VIAL IV SCH ×3 (08:00→20:54)
[2020-11-26] MEDS: LACTULOSE 20 GM/30 ML UDCUP PO SCH ×2 (08:08→20:55)
[2020-11-26] MEDS: SENNOSIDES 8.6 MG TABLET PO SCH ×2 (08:08→20:55)
[2020-11-26] MEDS: PANTOPRAZOLE 40 MG/VIAL IVP SCH ×2 (08:08→20:55)
[2020-11-26] MEDS: MAGNESIUM 2GM PREMIX 50ML 50 ML IV PRN (08:09)
[2020-11-26] MEDS ORDERED: SODIUM CHLORIDE 0.9% 250 ML IV ONE (08:34)
[2020-11-26 11:04] LABS: B-TYPE NATRIURETIC PEPTIDE 138 pg/mL (0-100)
[2020-11-26] MEDS: ALBUMIN (HUMAN) 25% 100 ML IV SCH ×3 (11:31→20:54)
[2020-11-26] MEDS: CALCIUM GLUCONATE 1 GM in SODIUM CHLORIDE 0.9% 100 ML IV PRN ×2 (11:31→13:02)
[2020-11-26] MEDS: ROCURONIUM BROMIDE 250 MG in SODIUM CHLORIDE 0.9% 250 ML IV SCH ×2 (13:08→16:48)
[2020-11-26] MEDS: LEVOFLOXACIN 500 MG/D5W 100 ML 100 ML IV SCH (14:02)
[2020-11-26] MEDS: MIDAZOLAM 100MG-0.9% NS 100ML 100 ML IV SCH (15:32)
[2020-11-26] MEDS: DAPTOMYCIN 500 MG in SODIUM CHLORIDE 0.9% 50 ML IV SCH (16:06)
[2020-11-27] VITALS (26 sets, daily range): BP systolic 116–193; BP diastolic 57–102
[2020-11-27] MEDS: INSULIN HUMULIN R 100 UNIT/ML 3ML SQ SCH ×4 (00:39→17:06)
[2020-11-27] MEDS: ROCURONIUM BROMIDE 250 MG in SODIUM CHLORIDE 0.9% 250 ML IV SCH (03:06)
[2020-11-27 04:16] LABS: HEMATOCRIT 24.1 % (42-54); MEAN CORPUSCULAR HEMOGLOBIN 30.3 pg (27.0-33.0); MEAN CORPUSCULAR VOLUME 94.9 fL (79-99); NUCLEATED RED BLOOD CELLS 0.3 % (0.0-0.19); RED BLOOD CELL COUNT(AUTO) 2.54 MIL/uL (4.50-6.20); RED CELL DISTRIBUTION WIDTH 13.2 % (11.0-15.5); WHITE BLOOD COUNT (AUTO) 13.7 K/uL (4.8-10.8)
[2020-11-27 04:30] LABS: CREATININE 0.5 mg/dL (0.5-1.5)
[2020-11-27] MEDS: METOCLOPRAMIDE 10 MG/2 ML VIAL IVP SCH ×4 (04:31→20:46)
[2020-11-27 04:40] LABS: POTASSIUM 2.5 mmol/L (3.5-5.1)
[2020-11-27] MEDS: ZOSYN 3.375GM+NS 50ML 50 ML IV SCH ×3 (05:16→20:45)
[2020-11-27] MEDS: METHYLPREDNISOLONE SOD SUCC 125MG/2ML VIAL IVP SCH ×3 (05:18→20:46)
[2020-11-27] MEDS: POTASSIUM CHLORIDE 10% ELIXIR 20 MEQ/15 ML UDCUP PO PRN ×4 (05:20→23:54)
[2020-11-27] MEDS: POTASSIUM CHLORIDE 20MEQ/100ML 100 ML IV PRN ×6 (05:21→23:55)
[2020-11-27] MEDS: CALCIUM GLUCONATE 1 GM in SODIUM CHLORIDE 0.9% 100 ML IV PRN ×3 (08:30→20:43)
[2020-11-27] MEDS: SENNOSIDES 8.6 MG TABLET PO SCH ×2 (09:02→20:45)
[2020-11-27] MEDS: NITROGLYCERIN 1GM/1 INCH PACKET TD PRN (09:02)
[2020-11-27] MEDS: LACTULOSE 20 GM/30 ML UDCUP PO SCH ×2 (09:02→20:45)
[2020-11-27] MEDS: ALBUMIN (HUMAN) 25% 100 ML IV SCH ×3 (09:03→20:45)
[2020-11-27] MEDS: PANTOPRAZOLE 40 MG/VIAL IVP SCH ×2 (09:03→20:45)
[2020-11-27] MEDS: FUROSEMIDE 10 MG/ML 2ML VIAL IV SCH ×3 (09:03→20:44)
[2020-11-27] MEDS: DEXTROSE 5%-WATER 1,000 ML IV SCH (12:12)
[2020-11-27 13:18] LABS: ALBUMIN 3.9 g/dL (3.5-5.0); BILIRUBIN,TOTAL 0.6 mg/dL (0.2-1.0); CREATININE 0.5 mg/dL (0.5-1.5); MAGNESIUM 1.8 mg/dL (1.80-2.40); TOTAL PROTEIN, SERUM 5.5 g/dL (6.0-8.3)
[2020-11-27] MEDS: MAGNESIUM 2GM PREMIX 50ML 50 ML IV PRN (13:59)
[2020-11-27] MEDS: LEVOFLOXACIN 500 MG/D5W 100 ML 100 ML IV SCH (14:00)
[2020-11-27] MEDS: DAPTOMYCIN 500 MG in SODIUM CHLORIDE 0.9% 50 ML IV SCH (16:30)
[2020-11-27] MEDS: MIDAZOLAM 100MG-0.9% NS 100ML 100 ML IV SCH (17:07)
[2020-11-27 18:02] LABS: CREATININE 0.5 mg/dL (0.5-1.5); POTASSIUM 3.2 mmol/L (3.5-5.1)
[2020-11-27 23:13] LABS: ALBUMIN 4.2 g/dL (3.5-5.0); BILIRUBIN,TOTAL 0.6 mg/dL (0.2-1.0); CREATININE 0.5 mg/dL (0.5-1.5); TOTAL PROTEIN, SERUM 5.7 g/dL (6.0-8.3)
[2020-11-28] VITALS (25 sets, daily range): BP systolic 116–177; BP diastolic 59–95
[2020-11-28] MEDS: INSULIN HUMULIN R 100 UNIT/ML 3ML SQ SCH ×3 (00:19→12:00)
[2020-11-28] MEDS: FENTANYL 2500MCG+NS 250ML 250 ML IV SCH ×2 (00:26→22:05)
[2020-11-28] MEDS: METOPROLOL TARTRATE 1 MG/ML 5ML VIAL IV PRN ×3 (01:33→15:58)
[2020-11-28] MEDS: METOCLOPRAMIDE 10 MG/2 ML VIAL IVP SCH ×4 (04:35→20:54)
[2020-11-28] MEDS: MIDAZOLAM 100MG-0.9% NS 100ML 100 ML IV SCH (04:36)
[2020-11-28 04:59] LABS: BASOPHILS % (AUTO) 0.1 % (0.0-5.0); MEAN CORPUSCULAR HEMOGLOBIN 30.3 pg (27.0-33.0); MEAN CORPUSCULAR HGB CONC 31.4 g/dL (32.0-36.0); MEAN CORPUSCULAR VOLUME 96.5 fL (79-99); MONOCYTES % (AUTO) 1.5 % (3.0-13.0); NEUTROPHILS % (AUTO) 93.7 % (40.0-77.0); NUCLEATED RED BLOOD CELLS 0.6 % (0.0-0.19); PLATELET COUNT (AUTO) 74 K/uL (130-400); RED BLOOD CELL COUNT(AUTO) 2.28 MIL/uL (4.50-6.20); RED CELL DISTRIBUTION WIDTH 13.3 % (11.0-15.5); WHITE BLOOD COUNT (AUTO) 10.8 K/uL (4.8-10.8)
[2020-11-28 05:18] LABS: ALBUMIN 3.7 g/dL (3.5-5.0); BILIRUBIN,TOTAL 0.5 mg/dL (0.2-1.0); CREATININE 0.4 mg/dL (0.5-1.5); MAGNESIUM 1.8 mg/dL (1.80-2.40); POTASSIUM 3.3 mmol/L (3.5-5.1); TOTAL PROTEIN, SERUM 5.2 g/dL (6.0-8.3)
[2020-11-28] MEDS: ZOSYN 3.375GM+NS 50ML 50 ML IV SCH ×3 (05:43→21:15)
[2020-11-28] MEDS: METHYLPREDNISOLONE SOD SUCC 125MG/2ML VIAL IVP SCH ×3 (05:44→21:15)
[2020-11-28] MEDS ORDERED: SODIUM CHLORIDE 0.9% 250 ML IV ONE (05:56)
[2020-11-28] MEDS: DEXTROSE 5%-WATER 1,000 ML IV SCH ×2 (06:32→21:15)
[2020-11-28] MEDS: LACTULOSE 20 GM/30 ML UDCUP PO SCH ×2 (09:00→20:52)
[2020-11-28] MEDS: ALBUMIN (HUMAN) 25% 100 ML IV SCH (09:03)
[2020-11-28] MEDS: POTASSIUM CHLORIDE 10% ELIXIR 20 MEQ/15 ML UDCUP PO PRN ×3 (09:03→14:00)
[2020-11-28] MEDS: SENNOSIDES 8.6 MG TABLET PO SCH ×2 (09:03→20:53)
[2020-11-28] MEDS: POTASSIUM CHLORIDE 20MEQ/100ML 100 ML IV PRN ×4 (09:04→16:28)
[2020-11-28] MEDS: MAGNESIUM 2GM PREMIX 50ML 50 ML IV PRN (09:04)
[2020-11-28] MEDS: PANTOPRAZOLE 40 MG/VIAL IVP SCH ×2 (09:04→21:14)
[2020-11-28] MEDS: FUROSEMIDE 10 MG/ML 2ML VIAL IV SCH ×2 (09:05→21:15)
[2020-11-28] MEDS: CALCIUM GLUCONATE 1 GM in SODIUM CHLORIDE 0.9% 100 ML IV PRN ×4 (09:20→23:13)
[2020-11-28] MEDS: NITROGLYCERIN 1GM/1 INCH PACKET TD PRN (10:29)
[2020-11-28 12:38] LABS: ALBUMIN 4.4 g/dL (3.5-5.0); BILIRUBIN,TOTAL 1.2 mg/dL (0.2-1.0); CREATININE 0.4 mg/dL (0.5-1.5); POTASSIUM 3.1 mmol/L (3.5-5.1); TOTAL PROTEIN, SERUM 6.1 g/dL (6.0-8.3)
[2020-11-28] MEDS: LEVOFLOXACIN 500 MG/D5W 100 ML 100 ML IV SCH (14:00)
[2020-11-28] MEDS: DAPTOMYCIN 500 MG in SODIUM CHLORIDE 0.9% 50 ML IV SCH (16:27)
[2020-11-28 18:29] LABS: BILIRUBIN,TOTAL 0.8 mg/dL (0.2-1.0); CREATININE 0.3 mg/dL (0.5-1.5); MAGNESIUM 2.8 mg/dL (1.80-2.40); TOTAL PROTEIN, SERUM 5.7 g/dL (6.0-8.3)
[2020-11-29] VITALS (26 sets, daily range): BP systolic 94–164; BP diastolic 47–87
[2020-11-29] MEDS: METOCLOPRAMIDE 10 MG/2 ML VIAL IVP SCH ×2 (04:12→10:09)
[2020-11-29] MEDS: METHYLPREDNISOLONE SOD SUCC 125MG/2ML VIAL IVP SCH ×3 (05:05→21:58)
[2020-11-29] MEDS: ZOSYN 3.375GM+NS 50ML 50 ML IV SCH ×3 (05:05→21:59)
[2020-11-29 05:40] LABS: HEMATOCRIT 25.5 % (42-54); MEAN CORPUSCULAR HEMOGLOBIN 30.6 pg (27.0-33.0); MEAN CORPUSCULAR HGB CONC 32.2 g/dL (32.0-36.0); MEAN CORPUSCULAR VOLUME 95.1 fL (79-99); NUCLEATED RED BLOOD CELLS 1.4 % (0.0-0.19); PLATELET COUNT (AUTO) 55 K/uL (130-400); RED BLOOD CELL COUNT(AUTO) 2.68 MIL/uL (4.50-6.20); RED CELL DISTRIBUTION WIDTH 14.2 % (11.0-15.5)
[2020-11-29 05:51] LABS: CREATININE 0.4 mg/dL (0.5-1.5); POTASSIUM 3.6 mmol/L (3.5-5.1)
[2020-11-29 06:13] LABS: PLATELET MORPHOLOGY COMMENT LARGE PLTS PRESENT
[2020-11-29] MEDS: POTASSIUM CHLORIDE 10% ELIXIR 20 MEQ/15 ML UDCUP PO PRN ×2 (06:22→09:27)
[2020-11-29] MEDS: CALCIUM GLUCONATE 1 GM in SODIUM CHLORIDE 0.9% 100 ML IV PRN ×2 (08:25→09:27)
[2020-11-29] MEDS: LACTULOSE 20 GM/30 ML UDCUP PO SCH (09:00)
[2020-11-29] MEDS: PANTOPRAZOLE 40 MG/VIAL IVP SCH ×2 (09:26→21:58)
[2020-11-29] MEDS: NITROGLYCERIN 1GM/1 INCH PACKET TD PRN (09:27)
[2020-11-29] MEDS: FUROSEMIDE 10 MG/ML 2ML VIAL IV SCH ×2 (09:28→21:58)
[2020-11-29] MEDS: SENNOSIDES 8.6 MG TABLET PO SCH ×2 (09:28→21:58)
[2020-11-29] MEDS ORDERED: METOCLOPRAMIDE 10 MG/2 ML VIAL IVP PRN (10:15)
[2020-11-29] MEDS ORDERED: LACTULOSE 20 GM/30 ML UDCUP PO PRN (10:30)
[2020-11-29] MEDS: NITROGLYCERIN 1GM/1 INCH PACKET TD SCH ×2 (13:00→17:39)
[2020-11-29 13:45] LABS: CREATININE 0.4 mg/dL (0.5-1.5); POTASSIUM 3.9 mmol/L (3.5-5.1)
[2020-11-29] MEDS: LEVOFLOXACIN 500 MG/D5W 100 ML 100 ML IV SCH (14:11)
[2020-11-29] MEDS: DAPTOMYCIN 500 MG in SODIUM CHLORIDE 0.9% 50 ML IV SCH (15:54)
[2020-11-29] MEDS: INSULIN HUMULIN R 100 UNIT/ML 3ML SQ SCH (17:59)
[2020-11-29] MEDS: DEXTROSE 5%-WATER 1,000 ML IV SCH (21:59)
[2020-11-30] VITALS (31 sets, daily range): BP systolic 88–157; BP diastolic 50–91
[2020-11-30] MEDS: INSULIN HUMULIN R 100 UNIT/ML 3ML SQ SCH ×5 (00:02→23:42)
[2020-11-30] MEDS: NITROGLYCERIN 1GM/1 INCH PACKET TD SCH ×4 (00:04→17:31)
[2020-11-30 04:35] LABS: HEMATOCRIT 25.4 % (42-54); MEAN CORPUSCULAR HEMOGLOBIN 30.5 pg (27.0-33.0); MEAN CORPUSCULAR HGB CONC 31.1 g/dL (32.0-36.0); MEAN CORPUSCULAR VOLUME 98.1 fL (79-99); NUCLEATED RED BLOOD CELLS 0.8 % (0.0-0.19); RED BLOOD CELL COUNT(AUTO) 2.59 MIL/uL (4.50-6.20); RED CELL DISTRIBUTION WIDTH 14.6 % (11.0-15.5); WHITE BLOOD COUNT (AUTO) 7.9 K/uL (4.8-10.8)
[2020-11-30 04:43] LABS: CREATININE 0.4 mg/dL (0.5-1.5); POTASSIUM 3.6 mmol/L (3.5-5.1)
[2020-11-30] MEDS: ZOSYN 3.375GM+NS 50ML 50 ML IV SCH ×3 (05:12→21:27)
[2020-11-30] MEDS: METHYLPREDNISOLONE SOD SUCC 125MG/2ML VIAL IVP SCH ×3 (05:13→21:26)
[2020-11-30] MEDS: POTASSIUM CHLORIDE 10% ELIXIR 20 MEQ/15 ML UDCUP PO PRN ×2 (05:36→09:06)
[2020-11-30] MEDS: DEXTROSE 5%-WATER 1,000 ML IV SCH (06:02)
[2020-11-30] MEDS: POTASSIUM CHLORIDE 20MEQ/100ML 100 ML IV PRN (09:05)
[2020-11-30] MEDS: PANTOPRAZOLE 40 MG/VIAL IVP SCH ×2 (09:05→21:29)
[2020-11-30] MEDS: CALCIUM GLUCONATE 1 GM in SODIUM CHLORIDE 0.9% 100 ML IV PRN ×2 (09:06→21:30)
[2020-11-30] MEDS: SENNOSIDES 8.6 MG TABLET PO SCH ×2 (09:06→21:27)
[2020-11-30 11:49] LABS: ABG BASE EXCESS 16.6 mmol/L (-2.0-3.0); ABG HCO3 43.3 mmol/L (21.0-28.0); ABG OXYGEN SATURATION 90.2 % (95.0-99.0); ABG PCO2 69 mmHg (35-48)
[2020-11-30 13:33] LABS: CREATININE 0.4 mg/dL (0.5-1.5); POTASSIUM 4.3 mmol/L (3.5-5.1)
[2020-11-30] MEDS: LEVOFLOXACIN 500 MG/D5W 100 ML 100 ML IV SCH (14:13)
[2020-11-30] MEDS: DAPTOMYCIN 500 MG in SODIUM CHLORIDE 0.9% 50 ML IV SCH (15:45)
[2020-12-01] VITALS (27 sets, daily range): BP systolic 88–137; BP diastolic 50–84
[2020-12-01 03:23] LABS: ABG BASE EXCESS 12.5 mmol/L (-2.0-3.0); ABG HCO3 41.4 mmol/L (21.0-28.0); ABG PCO2 73 mmHg (35-48)
[2020-12-01 04:40] LABS: HEMATOCRIT 21.9 % (42-54); MEAN CORPUSCULAR HEMOGLOBIN 31.5 pg (27.0-33.0); MEAN CORPUSCULAR HGB CONC 31.5 g/dL (32.0-36.0); NUCLEATED RED BLOOD CELLS 0.7 % (0.0-0.19); RED BLOOD CELL COUNT(AUTO) 2.19 MIL/uL (4.50-6.20); RED CELL DISTRIBUTION WIDTH 14.6 % (11.0-15.5); WHITE BLOOD COUNT (AUTO) 6.7 K/uL (4.8-10.8)
[2020-12-01 04:48] LABS: CREATININE 0.4 mg/dL (0.5-1.5); POTASSIUM 4.2 mmol/L (3.5-5.1)
[2020-12-01] MEDS: ZOSYN 3.375GM+NS 50ML 50 ML IV SCH ×3 (05:06→23:03)
[2020-12-01] MEDS: METHYLPREDNISOLONE SOD SUCC 125MG/2ML VIAL IVP SCH ×3 (05:06→23:02)
[2020-12-01] MEDS: NITROGLYCERIN 1GM/1 INCH PACKET TD SCH ×4 (05:07→18:24)
[2020-12-01] MEDS ORDERED: FUROSEMIDE 10 MG/ML 2ML VIAL IV SCH (06:15)
[2020-12-01] MEDS: INSULIN HUMULIN R 100 UNIT/ML 3ML SQ SCH ×3 (06:47→17:38)
[2020-12-01] MEDS: SENNOSIDES 8.6 MG TABLET PO SCH ×2 (09:00→23:02)
[2020-12-01] MEDS: PANTOPRAZOLE 40 MG/VIAL IVP SCH ×2 (09:11→23:01)
[2020-12-01] MEDS: CALCIUM GLUCONATE 1 GM in SODIUM CHLORIDE 0.9% 50 ML IV PRN (09:12)
[2020-12-01] MEDS: LEVOFLOXACIN 500 MG/D5W 100 ML 100 ML IV SCH (13:24)
[2020-12-01 16:23] LABS: HEMATOCRIT 23.3 % (42-54)
[2020-12-01 16:39] LABS: INR 1.1 (0.85-1.15); PROTHROMBIN TIME 11.9 SEC (9.6-11.6)
[2020-12-01 16:40] LABS: PARTIAL THROMBOPLASTIN TIME 25.1 SEC (26.3-35.5)
[2020-12-01 16:41] LABS: ALBUMIN 2.7 g/dL (3.5-5.0); BILIRUBIN,TOTAL 0.5 mg/dL (0.2-1.0); CREATININE 0.4 mg/dL (0.5-1.5); POTASSIUM 3.8 mmol/L (3.5-5.1); TOTAL PROTEIN, SERUM 4.9 g/dL (6.0-8.3)
[2020-12-01] MEDS: DAPTOMYCIN 500 MG in SODIUM CHLORIDE 0.9% 50 ML IV SCH (16:47)
[2020-12-01] MEDS ORDERED: PHARMACY COMMUNICATION MISC SCH ×2 (20:30→20:45)
[2020-12-01] MEDS: CALCIUM GLUCONATE 2 GM in SODIUM CHLORIDE 0.9% 100 ML IV SCH (22:49)
[2020-12-01] MEDS: METOPROLOL TARTRATE 25 MG TAB PO SCH (23:01)
[2020-12-02] VITALS (24 sets, daily range): BP systolic 93–147; BP diastolic 51–92
[2020-12-02] MEDS: NITROGLYCERIN 1GM/1 INCH PACKET TD SCH ×4 (02:34→18:19)
[2020-12-02 05:55] LABS: HEMATOCRIT 21.3 % (42-54); MEAN CORPUSCULAR HEMOGLOBIN 30.9 pg (27.0-33.0); MEAN CORPUSCULAR VOLUME 102.9 fL (79-99); NUCLEATED RED BLOOD CELLS 1.7 % (0.0-0.19); PLATELET COUNT (AUTO) 55 K/uL (130-400); RED BLOOD CELL COUNT(AUTO) 2.07 MIL/uL (4.50-6.20); WHITE BLOOD COUNT (AUTO) 4.7 K/uL (4.8-10.8)
[2020-12-02] MEDS: INSULIN HUMULIN R 100 UNIT/ML 3ML SQ SCH ×4 (06:00→18:21)
[2020-12-02 06:01] LABS: CREATININE 0.3 mg/dL (0.5-1.5); POTASSIUM 3.8 mmol/L (3.5-5.1)
[2020-12-02] MEDS: METHYLPREDNISOLONE SOD SUCC 125MG/2ML VIAL IVP SCH ×3 (06:36→23:13)
[2020-12-02] MEDS: ZOSYN 3.375GM+NS 50ML 50 ML IV SCH (06:37)
[2020-12-02] MEDS ORDERED: SODIUM CHLORIDE 0.9% 250 ML IV SCH (08:00)
[2020-12-02] MEDS: PANTOPRAZOLE 40 MG/VIAL IVP SCH ×2 (09:06→23:13)
[2020-12-02] MEDS: SENNOSIDES 8.6 MG TABLET PO SCH ×2 (09:06→23:12)
[2020-12-02] MEDS: METOPROLOL TARTRATE 25 MG TAB PO SCH ×2 (09:06→23:12)
[2020-12-02] MEDS: CALCIUM GLUCONATE 2 GM in SODIUM CHLORIDE 0.9% 100 ML IV SCH (09:07)
[2020-12-02] MEDS: LEVETIRACETAM 1,000 MG in SODIUM CHLORIDE 0.9% 100 ML IV SCH (10:57)
[2020-12-02] MEDS: FUROSEMIDE 10 MG/ML 2ML VIAL IV SCH (15:52)
[2020-12-02] MEDS: DAPTOMYCIN 500 MG in SODIUM CHLORIDE 0.9% 50 ML IV SCH (16:00)
[2020-12-02 16:12] LABS: MEAN CORPUSCULAR HEMOGLOBIN 30.1 pg (27.0-33.0); MEAN CORPUSCULAR HGB CONC 31.2 g/dL (32.0-36.0); MEAN CORPUSCULAR VOLUME 96.5 fL (79-99); NUCLEATED RED BLOOD CELLS 2.9 % (0.0-0.19); PLATELET COUNT (AUTO) 64 K/uL (130-400); RED BLOOD CELL COUNT(AUTO) 2.59 MIL/uL (4.50-6.20); RED CELL DISTRIBUTION WIDTH 17.4 % (11.0-15.5); WHITE BLOOD COUNT (AUTO) 4.9 K/uL (4.8-10.8)
[2020-12-02] MEDS: LORAZEPAM 2 MG/ML 1 ML VIAL IVP PRN (16:29)
[2020-12-02 16:45] LABS: BAND NEUTROPHILS % (MANUAL) 18 % (0-2); LYMPHOCYTES % (MANUAL) 2 % (22-44); MAN.DIFF COMMENT-IMPRESSION MANUAL DIFFERENTIAL; REACTIVE LYMPHOCYTES 7 % (0-0); SEGMENTED NEUTROPHILS % 73 % (40-70)
[2020-12-02] MEDS ORDERED: ERYTHROMYCIN BASE 0.5% OPHTH OINT 1 GM TUBE OU SCH (16:45)
[2020-12-03] VITALS (23 sets, daily range): BP systolic 99–132; BP diastolic 58–79
[2020-12-03] MEDS: INSULIN HUMULIN R 100 UNIT/ML 3ML SQ SCH ×5 (01:09→23:58)
[2020-12-03] MEDS: NITROGLYCERIN 1GM/1 INCH PACKET TD SCH ×4 (01:13→18:35)
[2020-12-03] MEDS: FUROSEMIDE 10 MG/ML 2ML VIAL IV SCH ×2 (02:58→14:35)
[2020-12-03 05:21] LABS: ABG HCO3 46.9 mmol/L (21.0-28.0); ABG PCO2 73 mmHg (35-48)
[2020-12-03 05:43] LABS: HEMATOCRIT 23.1 % (42-54); MEAN CORPUSCULAR HEMOGLOBIN 30.5 pg (27.0-33.0); MEAN CORPUSCULAR HGB CONC 31.6 g/dL (32.0-36.0); MEAN CORPUSCULAR VOLUME 96.7 fL (79-99); NUCLEATED RED BLOOD CELLS 3.4 % (0.0-0.19); RED BLOOD CELL COUNT(AUTO) 2.39 MIL/uL (4.50-6.20); RED CELL DISTRIBUTION WIDTH 17.2 % (11.0-15.5); WHITE BLOOD COUNT (AUTO) 3.9 K/uL (4.8-10.8)
[2020-12-03 05:54] LABS: CREATININE 0.4 mg/dL (0.5-1.5); POTASSIUM 3.1 mmol/L (3.5-5.1)
[2020-12-03] MEDS: METHYLPREDNISOLONE SOD SUCC 125MG/2ML VIAL IVP SCH ×3 (05:59→21:12)
[2020-12-03] MEDS: SENNOSIDES 8.6 MG TABLET PO SCH ×2 (09:06→21:11)
[2020-12-03] MEDS: METOPROLOL TARTRATE 25 MG TAB PO SCH ×2 (09:06→21:48)
[2020-12-03] MEDS: PANTOPRAZOLE 40 MG/VIAL IVP SCH ×2 (09:06→21:10)
[2020-12-03] MEDS: LEVETIRACETAM 1,000 MG in SODIUM CHLORIDE 0.9% 100 ML IV SCH ×2 (09:07→21:10)
[2020-12-03] MEDS: POTASSIUM CHLORIDE 20MEQ/100ML 100 ML IV PRN (19:38)
[2020-12-03] MEDS ORDERED: SODIUM CHLORIDE 0.9% 100 ML IV ONE (19:40)
[2020-12-03] MEDS: BALSAM PERU/CASTOR OIL 60 GM TUBE TP SCH (21:11)
[2020-12-04] VITALS (21 sets, daily range): BP systolic 99–168; BP diastolic 58–95
[2020-12-04] MEDS: NITROGLYCERIN 1GM/1 INCH PACKET TD SCH ×4 (01:50→18:22)
[2020-12-04] MEDS: FUROSEMIDE 10 MG/ML 2ML VIAL IV SCH ×2 (03:40→14:43)
[2020-12-04 04:03] LABS: CREATININE 0.3 mg/dL (0.5-1.5); POTASSIUM 3.9 mmol/L (3.5-5.1)
[2020-12-04] MEDS: METHYLPREDNISOLONE SOD SUCC 125MG/2ML VIAL IVP SCH ×3 (05:38→20:56)
[2020-12-04] MEDS: INSULIN HUMULIN R 100 UNIT/ML 3ML SQ SCH ×3 (06:05→18:00)
[2020-12-04] MEDS: BALSAM PERU/CASTOR OIL 60 GM TUBE TP SCH ×3 (08:38→20:57)
[2020-12-04] MEDS: LEVETIRACETAM 1,000 MG in SODIUM CHLORIDE 0.9% 100 ML IV SCH ×2 (08:43→20:56)
[2020-12-04] MEDS: METOPROLOL TARTRATE 25 MG TAB PO SCH ×2 (08:44→20:56)
[2020-12-04] MEDS: PANTOPRAZOLE 40 MG/VIAL IVP SCH (08:44)
[2020-12-04] MEDS: SENNOSIDES 8.6 MG TABLET PO SCH ×2 (08:44→20:56)
[2020-12-04] MEDS ORDERED: ESOMEPRAZOLE SODIUM 40 MG VIAL IV SCH (11:24)
[2020-12-04] MEDS ORDERED: ERYTHROMYCIN BASE 0.5% OPHTH OINT 1 GM TUBE OU SCH ×2 (15:30→17:30)
[2020-12-04 15:40] LABS: HEMATOCRIT 24.2 % (42-54)
[2020-12-04] MEDS ORDERED: FENTANYL 2500MCG+NS 250ML 250 ML IV SCH (19:30)
[2020-12-04] MEDS: ESOMEPRAZOLE SODIUM 40 MG VIAL IV SCH (20:56)
[2020-12-05] VITALS (24 sets, daily range): BP systolic 95–160; BP diastolic 58–91
[2020-12-05] MEDS: NITROGLYCERIN 1GM/1 INCH PACKET TD SCH ×4 (00:07→18:48)
[2020-12-05] MEDS: INSULIN HUMULIN R 100 UNIT/ML 3ML SQ SCH ×4 (00:08→18:47)
[2020-12-05] MEDS: FUROSEMIDE 10 MG/ML 2ML VIAL IV SCH ×2 (04:21→15:52)
[2020-12-05] MEDS: LORAZEPAM 2 MG/ML 1 ML VIAL IVP PRN (05:02)
[2020-12-05] MEDS: SENNOSIDES 8.6 MG TABLET PO SCH ×2 (08:09→20:03)
[2020-12-05] MEDS: METHYLPREDNISOLONE SOD SUCC 125MG/2ML VIAL IVP SCH ×2 (08:09→20:03)
[2020-12-05] MEDS: METOPROLOL TARTRATE 25 MG TAB PO SCH ×2 (08:09→20:02)
[2020-12-05] MEDS: BALSAM PERU/CASTOR OIL 60 GM TUBE TP SCH ×3 (08:09→20:03)
[2020-12-05] MEDS: ESOMEPRAZOLE SODIUM 40 MG VIAL IV SCH ×2 (08:31→20:02)
[2020-12-05] MEDS: LEVETIRACETAM 1,000 MG in SODIUM CHLORIDE 0.9% 100 ML IV SCH ×2 (10:15→20:02)
[2020-12-05] MEDS ORDERED: ACETAMINOPHEN ELIXIR 325 MG/10.15ML UDCUP PO SCH (13:00)
[2020-12-05] MEDS: PANTOPRAZOLE SODIUM 40 MG TABLET.DR PO SCH (20:37)
[2020-12-06] VITALS (28 sets, daily range): BP systolic 88–130; BP diastolic 51–84
[2020-12-06] MEDS: LORAZEPAM 2 MG/ML 1 ML VIAL IVP PRN (02:05)
[2020-12-06] MEDS: FUROSEMIDE 10 MG/ML 2ML VIAL IV SCH ×2 (03:46→15:30)
[2020-12-06 04:15] LABS: LYMPHOCYTES % (AUTO) 15.1 % (21.0-51.0); MEAN CORPUSCULAR HEMOGLOBIN 32.3 pg (27.0-33.0); MEAN CORPUSCULAR HGB CONC 31.6 g/dL (32.0-36.0); MEAN CORPUSCULAR VOLUME 102.1 fL (79-99); MONOCYTES % (AUTO) 2.4 % (3.0-13.0); NEUTROPHILS % (AUTO) 81.8 % (40.0-77.0); NUCLEATED RED BLOOD CELLS 5.5 % (0.0-0.19); PLATELET COUNT (AUTO) 52 K/uL (130-400); RED BLOOD CELL COUNT(AUTO) 1.92 MIL/uL (4.50-6.20); RED CELL DISTRIBUTION WIDTH 17.5 % (11.0-15.5); WHITE BLOOD COUNT (AUTO) 2.9 K/uL (4.8-10.8)
[2020-12-06 04:22] LABS: ALBUMIN 2.2 g/dL (3.5-5.0); BILIRUBIN,TOTAL 0.4 mg/dL (0.2-1.0); CREATININE 0.2 mg/dL (0.5-1.5); MAGNESIUM 3.1 mg/dL (1.80-2.40); PHOSPHORUS 1.4 mg/dL (2.5-4.9); POTASSIUM 3.2 mmol/L (3.5-5.1); TOTAL PROTEIN, SERUM 4.4 g/dL (6.0-8.3)
[2020-12-06 04:30] LABS: HEMATOCRIT 19.6 % (42-54)
[2020-12-06] MEDS: INSULIN HUMULIN R 100 UNIT/ML 3ML SQ SCH ×4 (05:04→18:00)
[2020-12-06] MEDS: NITROGLYCERIN 1GM/1 INCH PACKET TD SCH ×5 (05:04→23:56)
[2020-12-06] MEDS: POTASSIUM CHLORIDE 10% ELIXIR 20 MEQ/15 ML UDCUP PO PRN (05:07)
[2020-12-06 06:16] LABS: BAND NEUTROPHILS % (MANUAL) 25 % (0-2); LYMPHOCYTES % (MANUAL) 12 % (22-44); METAMYELOCYTES % 1 % (0-0); SEGMENTED NEUTROPHILS % 62 % (40-70)
[2020-12-06 06:17] LABS: MAN.DIFF COMMENT-IMPRESSION MANUAL DIFFERENTIAL; PLATELET MORPHOLOGY COMMENT DECREASED
[2020-12-06] MEDS: PANTOPRAZOLE SODIUM 40 MG TABLET.DR PO SCH ×2 (08:05→21:00)
[2020-12-06] MEDS: SENNOSIDES 8.6 MG TABLET PO SCH ×2 (08:05→21:28)
[2020-12-06] MEDS: METOPROLOL TARTRATE 25 MG TAB PO SCH ×2 (08:05→21:28)
[2020-12-06] MEDS: METHYLPREDNISOLONE SOD SUCC 125MG/2ML VIAL IVP SCH ×2 (08:05→21:28)
[2020-12-06] MEDS: BALSAM PERU/CASTOR OIL 60 GM TUBE TP SCH ×3 (08:24→21:28)
[2020-12-06] MEDS: LEVETIRACETAM 1,000 MG in SODIUM CHLORIDE 0.9% 100 ML IV SCH ×2 (08:24→21:40)
[2020-12-06] MEDS ORDERED: ACETAMINOPHEN ELIXIR 650 MG/20.3 ML UDCUP ONE (13:22)
[2020-12-06 15:48] LABS: EOSINOPHILS % (AUTO) 34.2 % (0.0-8.0); HEMATOCRIT 29.8 % (42-54); LYMPHOCYTES % (AUTO) 16.4 % (21.0-51.0); MEAN CORPUSCULAR HEMOGLOBIN 29.8 pg (27.0-33.0); MEAN CORPUSCULAR HGB CONC 30.9 g/dL (32.0-36.0); MEAN CORPUSCULAR VOLUME 96.4 fL (79-99); MONOCYTES % (AUTO) 2.7 % (3.0-13.0); NUCLEATED RED BLOOD CELLS 12.1 % (0.0-0.19); PLATELET COUNT (AUTO) 46 K/uL (130-400); RED BLOOD CELL COUNT(AUTO) 3.09 MIL/uL (4.50-6.20)
[2020-12-07] VITALS (26 sets, daily range): BP systolic 65–133; BP diastolic 38–78
[2020-12-07 03:53] LABS: CREATININE 0.2 mg/dL (0.5-1.5)
[2020-12-07] MEDS: FUROSEMIDE 10 MG/ML 2ML VIAL IV SCH ×2 (04:15→15:01)
[2020-12-07 04:21] LABS: BASOPHILS % (AUTO) 0.6 % (0.0-5.0); HEMATOCRIT 27.1 % (42-54); LYMPHOCYTES % (AUTO) 12.4 % (21.0-51.0); MEAN CORPUSCULAR HEMOGLOBIN 29.5 pg (27.0-33.0); MEAN CORPUSCULAR VOLUME 95.1 fL (79-99); MONOCYTES % (AUTO) 1.9 % (3.0-13.0); NEUTROPHILS % (AUTO) 84.8 % (40.0-77.0); NUCLEATED RED BLOOD CELLS 6.4 % (0.0-0.19); PLATELET COUNT (AUTO) 43 K/uL (130-400); RED BLOOD CELL COUNT(AUTO) 2.85 MIL/uL (4.50-6.20); RED CELL DISTRIBUTION WIDTH 19.6 % (11.0-15.5); WHITE BLOOD COUNT (AUTO) 3.1 K/uL (4.8-10.8)
[2020-12-07 04:37] LABS: ABG OXYGEN SATURATION 84.2 % (95.0-99.0); ABG PCO2 81 mmHg (35-48)
[2020-12-07] MEDS: NITROGLYCERIN 1GM/1 INCH PACKET TD SCH ×3 (05:31→18:00)
[2020-12-07] MEDS: INSULIN HUMULIN R 100 UNIT/ML 3ML SQ SCH ×4 (05:59→18:00)
[2020-12-07] MEDS: SENNOSIDES 8.6 MG TABLET PO SCH ×2 (08:37→20:33)
[2020-12-07] MEDS: PANTOPRAZOLE SODIUM 40 MG TABLET.DR PO SCH ×2 (08:37→20:33)
[2020-12-07] MEDS: LEVETIRACETAM 1,000 MG in SODIUM CHLORIDE 0.9% 100 ML IV SCH ×2 (08:37→20:31)
[2020-12-07] MEDS: METHYLPREDNISOLONE SOD SUCC 125MG/2ML VIAL IVP SCH ×2 (08:37→20:33)
[2020-12-07] MEDS: METOPROLOL TARTRATE 25 MG TAB PO SCH ×2 (08:37→20:33)
[2020-12-07] MEDS: BALSAM PERU/CASTOR OIL 60 GM TUBE TP SCH ×3 (09:00→20:33)
[2020-12-07] MEDS: ZOSYN 3.375GM+NS 50ML 50 ML IV SCH ×2 (15:00→20:33)
[2020-12-07 17:25] LABS: ABG BASE EXCESS 18.7 mmol/L (-2.0-3.0); ABG HCO3 45.8 mmol/L (21.0-28.0); ABG OXYGEN SATURATION 79.7 % (95.0-99.0); ABG PCO2 71 mmHg (35-48)
[2020-12-07] MEDS: ACETAMINOPHEN ELIXIR 650 MG/20.3 ML UDCUP NG PRN (20:32)
[2020-12-07] MEDS ORDERED: FLUCONAZOLE 400 MG/NS 200 ML 200 ML IV SCH (20:45)
[2020-12-08] VITALS (22 sets, daily range): BP systolic 98–146; BP diastolic 53–76
[2020-12-08] MEDS: NITROGLYCERIN 1GM/1 INCH PACKET TD SCH ×4 (00:28→18:00)
[2020-12-08] MEDS: FUROSEMIDE 10 MG/ML 2ML VIAL IV SCH ×2 (02:49→15:14)
[2020-12-08 04:14] LABS: HEMATOCRIT 23.9 % (42-54); MEAN CORPUSCULAR HEMOGLOBIN 30.2 pg (27.0-33.0); MEAN CORPUSCULAR HGB CONC 31.4 g/dL (32.0-36.0); MEAN CORPUSCULAR VOLUME 96.4 fL (79-99); NUCLEATED RED BLOOD CELLS 2.8 % (0.0-0.19); RED BLOOD CELL COUNT(AUTO) 2.48 MIL/uL (4.50-6.20); RED CELL DISTRIBUTION WIDTH 18.3 % (11.0-15.5); WHITE BLOOD COUNT (AUTO) 5.3 K/uL (4.8-10.8)
[2020-12-08 04:31] LABS: CREATININE 0.3 mg/dL (0.5-1.5); MAGNESIUM 1.6 mg/dL (1.80-2.40); POTASSIUM 3.5 mmol/L (3.5-5.1)
[2020-12-08] MEDS: ZOSYN 3.375GM+NS 50ML 50 ML IV SCH ×3 (05:15→21:18)
[2020-12-08] MEDS: INSULIN HUMULIN R 100 UNIT/ML 3ML SQ SCH ×4 (05:37→18:00)
[2020-12-08] MEDS: LEVETIRACETAM 1,000 MG in SODIUM CHLORIDE 0.9% 100 ML IV SCH ×2 (09:00→21:18)
[2020-12-08] MEDS: BALSAM PERU/CASTOR OIL 60 GM TUBE TP SCH ×3 (09:27→21:21)
[2020-12-08] MEDS: METHYLPREDNISOLONE SOD SUCC 125MG/2ML VIAL IVP SCH ×2 (09:27→21:19)
[2020-12-08] MEDS: METOPROLOL TARTRATE 25 MG TAB PO SCH ×2 (09:27→21:19)
[2020-12-08] MEDS: PANTOPRAZOLE SODIUM 40 MG TABLET.DR PO SCH ×2 (09:27→21:20)
[2020-12-08] MEDS: SENNOSIDES 8.6 MG TABLET PO SCH ×2 (09:27→21:20)
[2020-12-08] MEDS: DIAZEPAM 5 MG TABLET PO SCH ×2 (15:14→21:18)
[2020-12-08] MEDS: FLUCONAZOLE 200 MG/NS 100 ML 100 ML IV SCH (21:18)
[2020-12-09] VITALS (20 sets, daily range): BP systolic 97–128; BP diastolic 50–77
[2020-12-09] MEDS: INSULIN HUMULIN R 100 UNIT/ML 3ML SQ SCH ×4 (00:21→17:48)
[2020-12-09] MEDS: NITROGLYCERIN 1GM/1 INCH PACKET TD SCH ×4 (00:22→17:18)
[2020-12-09] MEDS: FUROSEMIDE 10 MG/ML 2ML VIAL IV SCH ×2 (03:40→15:34)
[2020-12-09] MEDS: DIAZEPAM 5 MG TABLET PO SCH ×4 (03:40→21:59)
[2020-12-09 04:01] LABS: HEMATOCRIT 22.4 % (42-54); MEAN CORPUSCULAR HEMOGLOBIN 30.6 pg (27.0-33.0); MEAN CORPUSCULAR HGB CONC 31.3 g/dL (32.0-36.0); MEAN CORPUSCULAR VOLUME 97.8 fL (79-99); NUCLEATED RED BLOOD CELLS 3.1 % (0.0-0.19); RED BLOOD CELL COUNT(AUTO) 2.29 MIL/uL (4.50-6.20); RED CELL DISTRIBUTION WIDTH 18.2 % (11.0-15.5); WHITE BLOOD COUNT (AUTO) 6.4 K/uL (4.8-10.8)
[2020-12-09 04:14] LABS: CREATININE 0.4 mg/dL (0.5-1.5); MAGNESIUM 1.7 mg/dL (1.80-2.40)
[2020-12-09 04:33] LABS: POTASSIUM 2.9 mmol/L (3.5-5.1)
[2020-12-09] MEDS: ZOSYN 3.375GM+NS 50ML 50 ML IV SCH ×3 (05:09→21:59)
[2020-12-09] MEDS: POTASSIUM CHLORIDE 20MEQ/100ML 100 ML IV PRN (05:15)
[2020-12-09] MEDS: MAGNESIUM 2GM PREMIX 50ML 50 ML IV PRN (05:16)
[2020-12-09] MEDS: METHYLPREDNISOLONE SOD SUCC 125MG/2ML VIAL IVP SCH (09:17)
[2020-12-09] MEDS: BALSAM PERU/CASTOR OIL 60 GM TUBE TP SCH ×3 (09:17→22:01)
[2020-12-09] MEDS: METOPROLOL TARTRATE 25 MG TAB PO SCH ×2 (09:18→22:00)
[2020-12-09] MEDS: PANTOPRAZOLE SODIUM 40 MG TABLET.DR PO SCH ×2 (09:18→22:00)
[2020-12-09] MEDS: SENNOSIDES 8.6 MG TABLET PO SCH ×2 (09:18→21:00)
[2020-12-09] MEDS: LEVETIRACETAM 1,000 MG in SODIUM CHLORIDE 0.9% 100 ML IV SCH ×2 (09:37→22:01)
[2020-12-09] MEDS: METHYLPREDNISOLONE SOD SUCC 40MG/ML 1ML IVP SCH (22:00)
[2020-12-09] MEDS: FLUCONAZOLE 200 MG/NS 100 ML 100 ML IV SCH (22:01)
[2020-12-09 23:20] LABS: HEMATOCRIT 17.9 % (42-54)
[2020-12-10] VITALS (22 sets, daily range): BP systolic 94–126; BP diastolic 53–74
[2020-12-10] MEDS ORDERED: SODIUM CHLORIDE 0.9% 100 ML IV ONE ×2 (00:57→23:19)
[2020-12-10] MEDS: INSULIN HUMULIN R 100 UNIT/ML 3ML SQ SCH ×4 (01:24→17:26)
[2020-12-10] MEDS: DIAZEPAM 5 MG TABLET PO SCH ×4 (02:54→22:41)
[2020-12-10 05:07] LABS: HEMATOCRIT 22.2 % (42-54); MEAN CORPUSCULAR HEMOGLOBIN 30.1 pg (27.0-33.0); MEAN CORPUSCULAR HGB CONC 31.1 g/dL (32.0-36.0); MEAN CORPUSCULAR VOLUME 96.9 fL (79-99); NUCLEATED RED BLOOD CELLS 5.3 % (0.0-0.19); PLATELET COUNT (AUTO) 61 K/uL (130-400); RED BLOOD CELL COUNT(AUTO) 2.29 MIL/uL (4.50-6.20); RED CELL DISTRIBUTION WIDTH 18.3 % (11.0-15.5); WHITE BLOOD COUNT (AUTO) 8.4 K/uL (4.8-10.8)
[2020-12-10 05:24] LABS: CREATININE 0.4 mg/dL (0.5-1.5); POTASSIUM 3.1 mmol/L (3.5-5.1)
[2020-12-10] MEDS: ZOSYN 3.375GM+NS 50ML 50 ML IV SCH ×3 (05:38→22:41)
[2020-12-10] MEDS: NITROGLYCERIN 1GM/1 INCH PACKET TD SCH ×4 (05:44→17:14)
[2020-12-10 08:13] LABS: BAND NEUTROPHILS % (MANUAL) 5 % (0-2); LYMPHOCYTES % (MANUAL) 7 % (22-44); MAN.DIFF COMMENT-IMPRESSION MANUAL DIFFERENTIAL; MONOCYTES % (MANUAL) 3 % (2-9); REACTIVE LYMPHOCYTES 1 % (0-0); SEGMENTED NEUTROPHILS % 84 % (40-70)
[2020-12-10 08:20] LABS: PLATELET MORPHOLOGY COMMENT DECREASED
[2020-12-10 09:22] LABS: ABG BASE EXCESS 18.6 mmol/L (-2.0-3.0); ABG HCO3 47.5 mmol/L (21.0-28.0); ABG OXYGEN SATURATION 81.9 % (95.0-99.0); ABG PCO2 73 mmHg (35-48)
[2020-12-10] MEDS: METOPROLOL TARTRATE 25 MG TAB PO SCH ×2 (09:39→22:41)
[2020-12-10] MEDS: METHYLPREDNISOLONE SOD SUCC 40MG/ML 1ML IVP SCH ×2 (09:39→22:41)
[2020-12-10] MEDS: SENNOSIDES 8.6 MG TABLET PO SCH (09:39)
[2020-12-10] MEDS: LEVETIRACETAM 1,000 MG in SODIUM CHLORIDE 0.9% 100 ML IV SCH ×2 (09:39→22:41)
[2020-12-10] MEDS: PANTOPRAZOLE SODIUM 40 MG TABLET.DR PO SCH ×2 (09:39→22:42)
[2020-12-10] MEDS: DEXTROSE 5%-WATER 1,000 ML IV SCH ×2 (09:39→17:53)
[2020-12-10] MEDS: BALSAM PERU/CASTOR OIL 60 GM TUBE TP SCH ×3 (09:40→22:42)
[2020-12-10 10:01] LABS: HEMATOCRIT 24.4 % (42-54)
[2020-12-10 10:12] LABS: INR 1.05 (0.85-1.15); PROTHROMBIN TIME 11.4 SEC (9.6-11.6)
[2020-12-10 10:14] LABS: PARTIAL THROMBOPLASTIN TIME 24.9 SEC (26.3-35.5)
[2020-12-10 16:20] LABS: HEMATOCRIT 23.1 % (42-54)
[2020-12-10 16:42] LABS: POTASSIUM 2.9 mmol/L (3.5-5.1)
[2020-12-10] MEDS: POTASSIUM CHLORIDE 20MEQ/100ML 100 ML IV PRN (17:07)
[2020-12-10 19:39] LABS: HEMATOCRIT 23.1 % (42-54); MEAN CORPUSCULAR HEMOGLOBIN 30.6 pg (27.0-33.0); MEAN CORPUSCULAR VOLUME 95.5 fL (79-99); NUCLEATED RED BLOOD CELLS 4.9 % (0.0-0.19); PLATELET COUNT (AUTO) 67 K/uL (130-400); RED BLOOD CELL COUNT(AUTO) 2.42 MIL/uL (4.50-6.20); WHITE BLOOD COUNT (AUTO) 7.7 K/uL (4.8-10.8)
[2020-12-10 20:13] LABS: B-TYPE NATRIURETIC PEPTIDE 6 pg/mL (0-100)
[2020-12-10 20:20] LABS: BAND NEUTROPHILS % (MANUAL) 11 % (0-2); LYMPHOCYTES % (MANUAL) 7 % (22-44); MAN.DIFF COMMENT-IMPRESSION MANUAL DIFFERENTIAL; MONOCYTES % (MANUAL) 2 % (2-9); PLATELET MORPHOLOGY COMMENT DECREASED; SEGMENTED NEUTROPHILS % 80 % (40-70)
[2020-12-10] MEDS: SUCRALFATE 1 GM TABLET PO SCH ×2 (22:30→22:42)
[2020-12-10] MEDS ORDERED: SENNOSIDES 8.6 MG TABLET PO PRN (22:30)
[2020-12-10] MEDS: FLUCONAZOLE 200 MG/NS 100 ML 100 ML IV SCH (22:40)
[2020-12-10 23:20] LABS: HEMATOCRIT 22.6 % (42-54)
[2020-12-10] MEDS ORDERED: PHARMACY COMMUNICATION MISC SCH (23:30)
[2020-12-11] VITALS (22 sets, daily range): BP systolic 101–126; BP diastolic 58–74
[2020-12-11] MEDS: NITROGLYCERIN 1GM/1 INCH PACKET TD SCH ×4 (01:24→17:03)
[2020-12-11 03:56] LABS: ABG BASE EXCESS 14.3 mmol/L (-2.0-3.0); ABG HCO3 41.6 mmol/L (21.0-28.0); ABG OXYGEN SATURATION 82.7 % (95.0-99.0); ABG PCO2 62 mmHg (35-48)
[2020-12-11] MEDS: DIAZEPAM 5 MG TABLET PO SCH ×4 (04:18→20:43)
[2020-12-11] MEDS: ZOSYN 3.375GM+NS 50ML 50 ML IV SCH ×3 (04:19→20:39)
[2020-12-11] MEDS: SUCRALFATE 1 GM TABLET PO SCH ×5 (04:20→21:31)
[2020-12-11] MEDS: DEXTROSE 5%-WATER 1,000 ML IV SCH ×2 (04:20→14:04)
[2020-12-11] MEDS: INSULIN HUMULIN R 100 UNIT/ML 3ML SQ SCH ×4 (06:35→17:03)
[2020-12-11 06:36] LABS: HEMATOCRIT 22.4 % (42-54); MEAN CORPUSCULAR HEMOGLOBIN 30.3 pg (27.0-33.0); MEAN CORPUSCULAR HGB CONC 31.7 g/dL (32.0-36.0); MEAN CORPUSCULAR VOLUME 95.7 fL (79-99); NUCLEATED RED BLOOD CELLS 3.6 % (0.0-0.19); RED BLOOD CELL COUNT(AUTO) 2.34 MIL/uL (4.50-6.20); RED CELL DISTRIBUTION WIDTH 16.8 % (11.0-15.5); WHITE BLOOD COUNT (AUTO) 8.7 K/uL (4.8-10.8)
[2020-12-11 06:46] LABS: CREATININE 0.3 mg/dL (0.5-1.5); POTASSIUM 3.2 mmol/L (3.5-5.1)
[2020-12-11] MEDS: PANTOPRAZOLE SODIUM 40 MG TABLET.DR PO SCH (08:34)
[2020-12-11] MEDS: METHYLPREDNISOLONE SOD SUCC 40MG/ML 1ML IVP SCH ×2 (08:34→20:39)
[2020-12-11] MEDS: BALSAM PERU/CASTOR OIL 60 GM TUBE TP SCH ×3 (08:34→20:38)
[2020-12-11] MEDS: METOPROLOL TARTRATE 25 MG TAB PO SCH ×2 (08:34→20:21)
[2020-12-11] MEDS: LEVETIRACETAM 1,000 MG in SODIUM CHLORIDE 0.9% 100 ML IV SCH ×2 (09:10→21:06)
[2020-12-11 10:15] LABS: HEMATOCRIT 21.9 % (42-54)
[2020-12-11] MEDS ORDERED: PHARMACY COMMUNICATION MISC SCH (13:00)
[2020-12-11 17:14] LABS: HEMATOCRIT 24.2 % (42-54)
[2020-12-11] MEDS: PANTOPRAZOLE SODIUM 80 MG in SODIUM CHLORIDE 0.9% 100 ML IVP SCH (20:21)
[2020-12-11] MEDS: FLUCONAZOLE 200 MG/NS 100 ML 100 ML IV SCH (20:38)
[2020-12-11 21:46] LABS: HEMATOCRIT 24.1 % (42-54)
[2020-12-12] VITALS (24 sets, daily range): BP systolic 74–123; BP diastolic 41–88
[2020-12-12] MEDS: DEXTROSE 5%-WATER 1,000 ML IV SCH ×3 (00:22→21:36)
[2020-12-12] MEDS: SUCRALFATE 1 GM TABLET PO SCH ×4 (03:34→21:36)
[2020-12-12] MEDS: DIAZEPAM 5 MG TABLET PO SCH ×4 (03:34→20:35)
[2020-12-12 04:59] LABS: HEMATOCRIT 26.7 % (42-54); MEAN CORPUSCULAR HEMOGLOBIN 29.7 pg (27.0-33.0); MEAN CORPUSCULAR HGB CONC 31.1 g/dL (32.0-36.0); MEAN CORPUSCULAR VOLUME 95.7 fL (79-99); NUCLEATED RED BLOOD CELLS 2.4 % (0.0-0.19); RED BLOOD CELL COUNT(AUTO) 2.79 MIL/uL (4.50-6.20); RED CELL DISTRIBUTION WIDTH 17.3 % (11.0-15.5); WHITE BLOOD COUNT (AUTO) 11.5 K/uL (4.8-10.8)
[2020-12-12 05:02] LABS: CREATININE 0.2 mg/dL (0.5-1.5); POTASSIUM 3.1 mmol/L (3.5-5.1)
[2020-12-12] MEDS: ZOSYN 3.375GM+NS 50ML 50 ML IV SCH (05:06)
[2020-12-12] MEDS: POTASSIUM CHLORIDE 10% ELIXIR 20 MEQ/15 ML UDCUP PO PRN (05:10)
[2020-12-12] MEDS: PANTOPRAZOLE SODIUM 80 MG in SODIUM CHLORIDE 0.9% 100 ML IVP SCH ×2 (05:11→17:45)
[2020-12-12 05:41] LABS: ABG BASE EXCESS 11.5 mmol/L (-2.0-3.0); ABG HCO3 40.4 mmol/L (21.0-28.0); ABG OXYGEN SATURATION 82.9 % (95.0-99.0); ABG PCO2 73 mmHg (35-48)
[2020-12-12] MEDS: NITROGLYCERIN 1GM/1 INCH PACKET TD SCH ×5 (05:46→23:05)
[2020-12-12] MEDS: INSULIN HUMULIN R 100 UNIT/ML 3ML SQ SCH ×5 (05:46→23:17)
[2020-12-12] MEDS: METOPROLOL TARTRATE 25 MG TAB PO SCH ×2 (09:08→20:16)
[2020-12-12] MEDS: METHYLPREDNISOLONE SOD SUCC 40MG/ML 1ML IVP SCH ×2 (09:08→20:37)
[2020-12-12] MEDS: LEVETIRACETAM 1,000 MG in SODIUM CHLORIDE 0.9% 100 ML IV SCH ×2 (09:08→20:16)
[2020-12-12] MEDS: BALSAM PERU/CASTOR OIL 60 GM TUBE TP SCH ×3 (09:13→20:16)
[2020-12-12] MEDS ORDERED: VANCOMYCIN PROTOCOL PER PHARMACY IV SCH (12:30)
[2020-12-12] MEDS ORDERED: MEROPENEM 1 GM VIAL IVP SCH ×2 (12:30→12:45)
[2020-12-12] MEDS ORDERED: VANCOMYCIN 1GM+NS 250ML 250 ML IV SCH (12:45)
[2020-12-12] MEDS ORDERED: ZOSYN 3.375GM+NS 50ML 50 ML IV ONE (12:57)
[2020-12-12] MEDS ORDERED: VANCOMYCIN 1.25 GM in SODIUM CHLORIDE 0.9% 250 ML IV SCH (13:30)
[2020-12-12] MEDS ORDERED: COMPOUND IV REFRIGERATED 1 EACH IVSOLN MISC PRN (13:30)
[2020-12-12] MEDS ORDERED: LINEZOLID 600 MG/ISO-OSM 300 ML IV SCH (13:45)
[2020-12-12] MEDS: NOREPINEPHRINE 4MG/NS 250ML 250 ML IV SCH ×2 (17:27→17:30)
[2020-12-12 18:28] LABS: INR 1.14 (0.85-1.15); PROTHROMBIN TIME 12.3 SEC (9.6-11.6)
[2020-12-12] MEDS ORDERED: FENTANYL CITRATE PF 0.05 MG/ML 1,000 MCG in SODIUM CHLORIDE 0.9% 100 ML IVPB SCH (19:15)
[2020-12-12] MEDS: FLUCONAZOLE 200 MG/NS 100 ML 100 ML IV SCH (20:16)
[2020-12-12] MEDS: LINEZOLID 600 MG/ISO-OSM 300 ML IV SCH (20:37)
[2020-12-12] MEDS: FENTANYL 2500MCG+NS 250ML 250 ML IV SCH (20:40)
[2020-12-12] MEDS ORDERED: VANCOMYCIN 750MG + NS 250 ML IV SCH ×2 (21:00)
[2020-12-12] MEDS: MEROPENEM 1 GM VIAL IVP SCH (21:36)
[2020-12-13] VITALS (23 sets, daily range): BP systolic 93–110; BP diastolic 52–67
[2020-12-13] MEDS: DIAZEPAM 5 MG TABLET PO SCH ×4 (02:14→21:03)
[2020-12-13] MEDS: SUCRALFATE 1 GM TABLET PO SCH ×4 (03:32→21:03)
[2020-12-13 03:48] LABS: MEAN CORPUSCULAR HEMOGLOBIN 29.4 pg (27.0-33.0); MEAN CORPUSCULAR HGB CONC 30.4 g/dL (32.0-36.0); MEAN CORPUSCULAR VOLUME 96.7 fL (79-99); NUCLEATED RED BLOOD CELLS 0.6 % (0.0-0.19); RED BLOOD CELL COUNT(AUTO) 2.69 MIL/uL (4.50-6.20); RED CELL DISTRIBUTION WIDTH 16.6 % (11.0-15.5); WHITE BLOOD COUNT (AUTO) 14.8 K/uL (4.8-10.8)
[2020-12-13 03:57] LABS: CREATININE 0.3 mg/dL (0.5-1.5)
[2020-12-13 04:00] LABS: POTASSIUM 2.9 mmol/L (3.5-5.1)
[2020-12-13] MEDS: POTASSIUM CHLORIDE 20MEQ/100ML 100 ML IV PRN ×3 (04:14→18:26)
[2020-12-13] MEDS: POTASSIUM CHLORIDE 10% ELIXIR 20 MEQ/15 ML UDCUP PO PRN (04:14)
[2020-12-13 04:53] LABS: ABG BASE EXCESS 12.6 mmol/L (-2.0-3.0); ABG HCO3 39.5 mmol/L (21.0-28.0); ABG OXYGEN SATURATION 66.6 % (95.0-99.0); ABG PCO2 59 mmHg (35-48)
[2020-12-13] MEDS: NITROGLYCERIN 1GM/1 INCH PACKET TD SCH ×3 (05:07→17:59)
[2020-12-13] MEDS: MEROPENEM 1 GM VIAL IVP SCH ×3 (06:14→20:59)
[2020-12-13] MEDS: DEXTROSE 5%-WATER 1,000 ML IV SCH ×2 (06:18→09:09)
[2020-12-13] MEDS: INSULIN HUMULIN R 100 UNIT/ML 3ML SQ SCH ×3 (06:23→18:00)
[2020-12-13] MEDS: METOPROLOL TARTRATE 25 MG TAB PO SCH ×2 (08:10→20:59)
[2020-12-13] MEDS: LINEZOLID 600 MG/ISO-OSM 300 ML IV SCH ×2 (08:23→20:59)
[2020-12-13] MEDS: LEVETIRACETAM 1,000 MG in SODIUM CHLORIDE 0.9% 100 ML IV SCH ×2 (08:23→20:59)
[2020-12-13] MEDS: METHYLPREDNISOLONE SOD SUCC 40MG/ML 1ML IVP SCH ×2 (08:23→20:59)
[2020-12-13] MEDS: BALSAM PERU/CASTOR OIL 60 GM TUBE TP SCH ×3 (08:24→21:03)
[2020-12-13] MEDS: PANTOPRAZOLE SODIUM 80 MG in SODIUM CHLORIDE 0.9% 100 ML IVP SCH (09:08)
[2020-12-13] MEDS: NOREPINEPHRINE 4MG/NS 250ML 250 ML IV SCH (10:17)
[2020-12-13] MEDS ORDERED: CALCIUM GLUCONATE 1 GM/10 ML VIAL IV ONE ×2 (12:45→12:49)
[2020-12-13] MEDS ORDERED: SODIUM CHLORIDE 0.9% 100 ML IV ONE (12:50)
[2020-12-13] MEDS: CALCIUM GLUCONATE 1 GM in SODIUM CHLORIDE 0.9% 50 ML IV PRN (12:52)
[2020-12-13] MEDS: FUROSEMIDE 10 MG/ML 2ML VIAL IV SCH (14:29)
[2020-12-13] MEDS: FLUCONAZOLE 200 MG/NS 100 ML 100 ML IV SCH (20:59)
[2020-12-14] VITALS (23 sets, daily range): BP systolic 93–127; BP diastolic 58–78
[2020-12-14] MEDS: NITROGLYCERIN 1GM/1 INCH PACKET TD SCH ×5 (00:18→23:45)
[2020-12-14] MEDS: FUROSEMIDE 10 MG/ML 2ML VIAL IV SCH ×2 (01:38→14:12)
[2020-12-14] MEDS: POTASSIUM CHLORIDE 10% ELIXIR 20 MEQ/15 ML UDCUP PO PRN ×3 (01:53→11:57)
[2020-12-14] MEDS: FENTANYL 2500MCG+NS 250ML 250 ML IV SCH (02:31)
[2020-12-14] MEDS: DIAZEPAM 5 MG TABLET PO SCH ×4 (04:08→20:49)
[2020-12-14] MEDS: SUCRALFATE 1 GM TABLET PO SCH ×4 (04:08→20:48)
[2020-12-14] MEDS: INSULIN HUMULIN R 100 UNIT/ML 3ML SQ SCH ×5 (06:00→23:45)
[2020-12-14 06:35] LABS: HEMATOCRIT 29.1 % (42-54); MEAN CORPUSCULAR HEMOGLOBIN 29.1 pg (27.0-33.0); MEAN CORPUSCULAR HGB CONC 30.6 g/dL (32.0-36.0); MEAN CORPUSCULAR VOLUME 95.1 fL (79-99); NUCLEATED RED BLOOD CELLS 1.1 % (0.0-0.19); RED BLOOD CELL COUNT(AUTO) 3.06 MIL/uL (4.50-6.20); RED CELL DISTRIBUTION WIDTH 16.2 % (11.0-15.5); WHITE BLOOD COUNT (AUTO) 18.5 K/uL (4.8-10.8)
[2020-12-14] MEDS: MEROPENEM 1 GM VIAL IVP SCH ×3 (06:39→20:49)
[2020-12-14 06:44] LABS: INR 1.13 (0.85-1.15); PROTHROMBIN TIME 12.2 SEC (9.6-11.6)
[2020-12-14 06:45] LABS: ALBUMIN 1.2 g/dL (3.5-5.0); BILIRUBIN,TOTAL 0.3 mg/dL (0.2-1.0); CREATININE 0.4 mg/dL (0.5-1.5); MAGNESIUM 1.4 mg/dL (1.80-2.40); PHOSPHORUS 1.3 mg/dL (2.5-4.9); POTASSIUM 3.4 mmol/L (3.5-5.1); TOTAL PROTEIN, SERUM 4.3 g/dL (6.0-8.3)
[2020-12-14 07:13] LABS: ABG BASE EXCESS 13.4 mmol/L (-2.0-3.0); ABG HCO3 40.1 mmol/L (21.0-28.0); ABG PCO2 65 mmHg (35-48)
[2020-12-14] MEDS ORDERED: CALCIUM GLUCONATE 1 GM/10 ML VIAL IV ONE (07:52)
[2020-12-14] MEDS ORDERED: SODIUM CHLORIDE 0.9% 100 ML IV ONE (07:53)
[2020-12-14] MEDS: LINEZOLID 600 MG/ISO-OSM 300 ML IV SCH ×2 (07:58→20:47)
[2020-12-14] MEDS: METOPROLOL TARTRATE 25 MG TAB PO SCH ×2 (07:59→20:50)
[2020-12-14] MEDS: METHYLPREDNISOLONE SOD SUCC 40MG/ML 1ML IVP SCH ×2 (08:00→20:49)
[2020-12-14] MEDS: BALSAM PERU/CASTOR OIL 60 GM TUBE TP SCH ×3 (08:03→20:50)
[2020-12-14] MEDS: LEVETIRACETAM 1,000 MG in SODIUM CHLORIDE 0.9% 100 ML IV SCH ×2 (08:10→20:47)
[2020-12-14] MEDS: PANTOPRAZOLE SODIUM 80 MG in SODIUM CHLORIDE 0.9% 100 ML IVP SCH ×2 (09:29→20:48)
[2020-12-14] MEDS: MAGNESIUM 2GM PREMIX 50ML 50 ML IV PRN (11:57)
[2020-12-14] MEDS: FLUCONAZOLE 200 MG/NS 100 ML 100 ML IV SCH (20:47)
[2020-12-15] VITALS (24 sets, daily range): BP systolic 99–120; BP diastolic 50–73
[2020-12-15] MEDS: FUROSEMIDE 10 MG/ML 2ML VIAL IV SCH ×3 (02:55→17:27)
[2020-12-15] MEDS: DIAZEPAM 5 MG TABLET PO SCH ×4 (03:14→21:12)
[2020-12-15] MEDS: SUCRALFATE 1 GM TABLET PO SCH ×4 (03:14→21:13)
[2020-12-15 05:14] LABS: CREATININE 0.3 mg/dL (0.5-1.5); POTASSIUM 3.6 mmol/L (3.5-5.1)
[2020-12-15] MEDS: INSULIN HUMULIN R 100 UNIT/ML 3ML SQ SCH ×3 (06:00→17:49)
[2020-12-15] MEDS: NITROGLYCERIN 1GM/1 INCH PACKET TD SCH ×3 (06:10→17:26)
[2020-12-15] MEDS: MEROPENEM 1 GM VIAL IVP SCH ×3 (06:10→21:11)
[2020-12-15 07:34] LABS: HEMATOCRIT 27.9 % (42-54); MEAN CORPUSCULAR HEMOGLOBIN 29.9 pg (27.0-33.0); MEAN CORPUSCULAR HGB CONC 31.5 g/dL (32.0-36.0); MEAN CORPUSCULAR VOLUME 94.9 fL (79-99); NUCLEATED RED BLOOD CELLS 2.4 % (0.0-0.19); RED BLOOD CELL COUNT(AUTO) 2.94 MIL/uL (4.50-6.20); RED CELL DISTRIBUTION WIDTH 16.1 % (11.0-15.5); WHITE BLOOD COUNT (AUTO) 16.5 K/uL (4.8-10.8)
[2020-12-15] MEDS: LINEZOLID 600 MG/ISO-OSM 300 ML IV SCH ×2 (08:05→21:12)
[2020-12-15] MEDS: LEVETIRACETAM 1,000 MG in SODIUM CHLORIDE 0.9% 100 ML IV SCH ×2 (08:05→21:11)
[2020-12-15] MEDS: METHYLPREDNISOLONE SOD SUCC 40MG/ML 1ML IVP SCH ×2 (08:07→21:11)
[2020-12-15] MEDS: BALSAM PERU/CASTOR OIL 60 GM TUBE TP SCH ×3 (08:07→21:12)
[2020-12-15] MEDS: METOPROLOL TARTRATE 25 MG TAB PO SCH ×2 (08:08→21:00)
[2020-12-15] MEDS: POTASSIUM CHLORIDE 10% ELIXIR 20 MEQ/15 ML UDCUP PO PRN (08:13)
[2020-12-15 08:15] LABS: MAGNESIUM 1.9 mg/dL (1.80-2.40); PHOSPHORUS 1.3 mg/dL (2.5-4.9)
[2020-12-15] MEDS: PANTOPRAZOLE SODIUM 80 MG in SODIUM CHLORIDE 0.9% 100 ML IVP SCH (09:03)
[2020-12-15] MEDS: FENTANYL 2500MCG+NS 250ML 250 ML IV SCH (09:51)
[2020-12-15] MEDS ORDERED: CALCIUM GLUCONATE 1 GM/10 ML VIAL IV ONE (10:06)
[2020-12-15] MEDS: CALCIUM GLUCONATE 1 GM in SODIUM CHLORIDE 0.9% 50 ML IV PRN ×2 (10:15→10:19)
[2020-12-15] MEDS: POTASSIUM CHLORIDE 20MEQ/100ML 100 ML IV PRN ×2 (10:16→17:28)
[2020-12-15] MEDS: MAGNESIUM 2GM PREMIX 50ML 50 ML IV PRN (10:17)
[2020-12-15 10:58] LABS: ABG HCO3 40.8 mmol/L (21.0-28.0); ABG OXYGEN SATURATION 64.3 % (95.0-99.0); ABG PCO2 72 mmHg (35-48)
[2020-12-15] MEDS: FLUCONAZOLE 200 MG/NS 100 ML 100 ML IV SCH (21:08)
[2020-12-15] MEDS: NOREPINEPHRINE 4MG/NS 250ML 250 ML IV SCH (21:10)
[2020-12-16] VITALS (24 sets, daily range): BP systolic 101–125; BP diastolic 61–78
[2020-12-16] MEDS: NITROGLYCERIN 1GM/1 INCH PACKET TD SCH ×4 (04:13→14:58)
[2020-12-16] MEDS: DIAZEPAM 5 MG TABLET PO SCH ×4 (04:14→20:17)
[2020-12-16] MEDS: SUCRALFATE 1 GM TABLET PO SCH ×4 (04:15→20:16)
[2020-12-16 05:56] LABS: BASOPHILS % (AUTO) 0.6 % (0.0-5.0); EOSINOPHILS % (AUTO) 0.1 % (0.0-8.0); HEMATOCRIT 27.9 % (42-54); LYMPHOCYTES % (AUTO) 5.5 % (21.0-51.0); MEAN CORPUSCULAR HGB CONC 30.8 g/dL (32.0-36.0); MEAN CORPUSCULAR VOLUME 93.9 fL (79-99); MONOCYTES % (AUTO) 0.8 % (3.0-13.0); NEUTROPHILS % (AUTO) 89.8 % (40.0-77.0); NUCLEATED RED BLOOD CELLS 7.1 % (0.0-0.19); PLATELET COUNT (AUTO) 58 K/uL (130-400); RED BLOOD CELL COUNT(AUTO) 2.97 MIL/uL (4.50-6.20); RED CELL DISTRIBUTION WIDTH 16.4 % (11.0-15.5); WHITE BLOOD COUNT (AUTO) 12.6 K/uL (4.8-10.8)
[2020-12-16] MEDS: INSULIN HUMULIN R 100 UNIT/ML 3ML SQ SCH ×4 (06:00→18:00)
[2020-12-16 06:12] LABS: POTASSIUM 3.8 mmol/L (3.5-5.1)
[2020-12-16 06:13] LABS: ALBUMIN 1.1 g/dL (3.5-5.0); BILIRUBIN,TOTAL 0.3 mg/dL (0.2-1.0); CREATININE 0.4 mg/dL (0.5-1.5); MAGNESIUM 2.1 mg/dL (1.80-2.40); PHOSPHORUS 1.3 mg/dL (2.5-4.9); TOTAL PROTEIN, SERUM 4.6 g/dL (6.0-8.3)
[2020-12-16 06:54] LABS: ABG BASE EXCESS 11.1 mmol/L (-2.0-3.0); ABG HCO3 40.1 mmol/L (21.0-28.0); ABG OXYGEN SATURATION 74.6 % (95.0-99.0); ABG PCO2 74 mmHg (35-48)
[2020-12-16] MEDS: MEROPENEM 1 GM VIAL IVP SCH (06:54)
[2020-12-16 07:31] LABS: BAND NEUTROPHILS % (MANUAL) 7 % (0-2); EOSINOPHILS % (MANUAL) 1 % (1-6); LYMPHOCYTES % (MANUAL) 3 % (22-44); MAN.DIFF COMMENT-IMPRESSION MANUAL DIFFERENTIAL; MONOCYTES % (MANUAL) 1 % (2-9); REACTIVE LYMPHOCYTES 3 % (0-0); SEGMENTED NEUTROPHILS % 85 % (40-70)
[2020-12-16] MEDS: METHYLPREDNISOLONE SOD SUCC 40MG/ML 1ML IVP SCH ×2 (08:36→20:19)
[2020-12-16] MEDS: LINEZOLID 600 MG/ISO-OSM 300 ML IV SCH ×2 (08:36→20:17)
[2020-12-16] MEDS: METOPROLOL TARTRATE 25 MG TAB PO SCH ×2 (08:36→20:17)
[2020-12-16] MEDS: BALSAM PERU/CASTOR OIL 60 GM TUBE TP SCH ×3 (08:41→20:20)
[2020-12-16] MEDS: LEVETIRACETAM 1,000 MG in SODIUM CHLORIDE 0.9% 100 ML IV SCH ×2 (08:43→20:16)
[2020-12-16] MEDS: NOREPINEPHRINE 4MG/NS 250ML 250 ML IV SCH (14:07)
[2020-12-16] MEDS: FENTANYL 2500MCG+NS 250ML 250 ML IV SCH (14:08)
[2020-12-16] MEDS: PANTOPRAZOLE SODIUM 80 MG in SODIUM CHLORIDE 0.9% 100 ML IVP SCH (14:09)
[2020-12-16] MEDS: FUROSEMIDE 10 MG/ML 2ML VIAL IV SCH ×2 (15:50→20:18)
[2020-12-16 16:59] LABS: ABG OXYGEN SATURATION 77.6 % (95.0-99.0); ABG PCO2 87 mmHg (35-48)
[2020-12-16] MEDS: ACETAMINOPHEN ELIXIR 650 MG/20.3 ML UDCUP NG PRN (20:19)
[2020-12-16] MEDS: POTASSIUM CHLORIDE 10% ELIXIR 20 MEQ/15 ML UDCUP PO PRN (20:19)
[2020-12-17] VITALS (18 sets, daily range): BP systolic 90–113; BP diastolic 52–69
[2020-12-17] MEDS: DIAZEPAM 5 MG TABLET PO SCH ×3 (03:31→16:08)
[2020-12-17] MEDS: SUCRALFATE 1 GM TABLET PO SCH ×3 (05:14→16:09)
[2020-12-17] MEDS: INSULIN HUMULIN R 100 UNIT/ML 3ML SQ SCH ×4 (06:00→17:51)
[2020-12-17 06:28] LABS: HEMATOCRIT 26.5 % (42-54); MEAN CORPUSCULAR HGB CONC 30.9 g/dL (32.0-36.0); MEAN CORPUSCULAR VOLUME 97.1 fL (79-99); NUCLEATED RED BLOOD CELLS 7.3 % (0.0-0.19); PLATELET COUNT (AUTO) 49 K/uL (130-400); RED BLOOD CELL COUNT(AUTO) 2.73 MIL/uL (4.50-6.20); RED CELL DISTRIBUTION WIDTH 16.9 % (11.0-15.5); WHITE BLOOD COUNT (AUTO) 12.8 K/uL (4.8-10.8)
[2020-12-17] MEDS: NITROGLYCERIN 1GM/1 INCH PACKET TD SCH ×4 (06:31→13:37)
[2020-12-17 06:36] LABS: CREATININE 0.3 mg/dL (0.5-1.5); POTASSIUM 4.1 mmol/L (3.5-5.1)
[2020-12-17 07:21] LABS: BAND NEUTROPHILS % (MANUAL) 4 % (0-2); LYMPHOCYTES % (MANUAL) 4 % (22-44); SEGMENTED NEUTROPHILS % 92 % (40-70)
[2020-12-17 07:22] LABS: MAN.DIFF COMMENT-IMPRESSION MANUAL DIFFERENTIAL
[2020-12-17 07:23] LABS: PLATELET MORPHOLOGY COMMENT DECREASED
[2020-12-17] MEDS: FUROSEMIDE 10 MG/ML 2ML VIAL IV SCH ×2 (08:46→16:08)
[2020-12-17] MEDS: METHYLPREDNISOLONE SOD SUCC 40MG/ML 1ML IVP SCH (08:46)
[2020-12-17] MEDS: LINEZOLID 600 MG/ISO-OSM 300 ML IV SCH (08:46)
[2020-12-17] MEDS: METOPROLOL TARTRATE 25 MG TAB PO SCH (08:47)
[2020-12-17] MEDS: LEVETIRACETAM 1,000 MG in SODIUM CHLORIDE 0.9% 100 ML IV SCH (08:51)
[2020-12-17] MEDS: BALSAM PERU/CASTOR OIL 60 GM TUBE TP SCH ×2 (08:52→16:08)
[2020-12-17] MEDS: PANTOPRAZOLE SODIUM 80 MG in SODIUM CHLORIDE 0.9% 100 ML IVP SCH (09:25)
[2020-12-17 13:09] LABS: ABG HCO3 39.9 mmol/L (21.0-28.0); ABG OXYGEN SATURATION 74.8 % (95.0-99.0); ABG PCO2 97 mmHg (35-48)
[2020-12-17] MEDS: FENTANYL 2500MCG+NS 250ML 250 ML IV SCH (16:07)
[2020-12-17] MEDS: NOREPINEPHRINE 4MG/NS 250ML 250 ML IV SCH (16:07)
== END 2020-12-17 18:16 | disposition expired | DRG 720 ==
LOC: EDH 16:46 → EDHIP 16:47 → 2DH 10-28 19:53 → 2AH 11-08 13:13 → 2CV 11-22 06:22 → 2DH 12-01 17:09
PROVIDERS: ADMIT Internal Medicine Pulmonary Disease; ATTEND Internal Medicine Pulmonary Disease
PROC: 05H533Z Insertion of Infusion Device into Right Subclavian Vein, Percutaneous Approach (ICD-10-PCS; principal; 2020-11-08)
PROC: 5A1955Z Respiratory Ventilation, Greater than 96 Consecutive Hours (ICD-10-PCS; 2020-11-08)
PROC: 0BH17EZ Insertion of Endotracheal Airway into Trachea, Via Natural or Artificial Opening (ICD-10-PCS; 2020-11-08)
PROC: 5A09357 Assistance with Respiratory Ventilation, Less than 24 Consecutive Hours, Continuous Positive Airway Pressure (ICD-10-PCS; 2020-11-08)
PROC: 30233N1 Transfusion of Nonautologous Red Blood Cells into Peripheral Vein, Percutaneous Approach (ICD-10-PCS; 2020-11-26)
DX: A41.81 Sepsis due to Enterococcus (principal); U07.1 COVID-19; J96.01 Acute respiratory failure with hypoxia; J12.82 Pneumonia due to coronavirus disease 2019; T79.7XXA Traumatic subcutaneous emphysema, initial encounter; Z68.28 Body mass index [BMI] 28.0-28.9, adult; E66.01 Morbid (severe) obesity due to excess calories; D62 Acute posthemorrhagic anemia; D75.82 Heparin induced thrombocytopenia (HIT); E87.0 Hyperosmolality and hypernatremia; E87.1 Hypo-osmolality and hyponatremia; E87.5 Hyperkalemia; J96.02 Acute respiratory failure with hypercapnia; K59.00 Constipation, unspecified; E11.9 Type 2 diabetes mellitus without complications; E87.70 Fluid overload, unspecified; G83.9 Paralytic syndrome, unspecified; G93.1 Anoxic brain damage, not elsewhere classified; I10 Essential (primary) hypertension; J00 Acute nasopharyngitis [common cold]; J84.10 Pulmonary fibrosis, unspecified; L89.92 Pressure ulcer of unspecified site, stage 2; N19 Unspecified kidney failure; L89.322 Pressure ulcer of left buttock, stage 2; L89.312 Pressure ulcer of right buttock, stage 2; N39.0 Urinary tract infection, site not specified; R13.12 Dysphagia, oropharyngeal phase; K92.2 Gastrointestinal hemorrhage, unspecified; R62.7 Adult failure to thrive; R65.21 Severe sepsis with septic shock; Z59.7 Insufficient social insurance and welfare support; Z74.01 Bed confinement status; Z79.2 Long term (current) use of antibiotics; Z87.01 Personal history of pneumonia (recurrent); Z99.11 Dependence on respirator [ventilator] status; Z88.8 Allergy status to other drugs, medicaments and biological substances; Y92.89 Other specified places as the place of occurrence of the external cause; L98.499 Non-pressure chronic ulcer of skin of other sites with unspecified severity
CPT/HCPCS: 31500; 36415; 36430; 36600; 71045; 74018; 80048; 80053; 80076; 81001; 82140; 82270; 82435; 82550; 82728; 82803; 82947; 82948; 83605; 83615; 83735; 83880; 84100; 84132; 84145; 84146; 84295; 84484; 85014; 85018; 85025; 85027; 85378; 85610; 85730; 86022; 86140; 86850; 86900; 86901; 86923; 87040; 87046; 87071; 87077; 87088; 87186; 87205; 87324; 87426; 87804; 87880; 93005; 94002; 94003; 94660; 99291; C9113; G0378; J0610; J0696; J0878; J1450; J1650; J1652; J1815; J1940; J1953; J1956; J2020; J2060; J2185; J2212; J2250; J2543; J2704; J2765; J2920; J2930; J3010; J3370; J3475; J3480; J3490; J7030; J7050; J7070; J8540; P9016; P9046; U0003